=== PATIENT | male | born 1960 | race Caucasian/White ===

== ENCOUNTER 2018-10-13 09:56 | Emergency (ER) | payer BC, SELFPAY ==
[2018-10-13 09:57] VITALS: BP 169/101; PULSE 55; RESP 15; TEMP 36.6; O2SAT 94; BMI 35.3
--- NOTE | 2018-10-13 10:13 | CT_ITS ---
STUDY: CT ABDOMEN AND PELVIS WITHOUT CONTRAST REASON FOR EXAM: Male, 58 years old. Right flank pain. History of kidney stones. RADIATION DOSAGE (If Supplied By Facility): CTDIvol = ( 18.63 ) mGy, DLP = ( 986.92 ) mGycm TECHNIQUE: Transaxial images were obtained from the dome of the diaphragm to the symphysis pubis without oral contrast, and without intravenous contrast. Sagittal and coronal images were reconstructed. Individualized dose optimization techniques were used for this CT. COMPARISON: None. FINDINGS: Minimal degree of increased linear markings at the lung bases suggestive of the linear atelectasis and/or scarring. The visualized portions of the heart are within normal limits. There is decreased attenuation of the liver consistent with steatosis. Normal gallbladder and extrahepatic biliary system. Normal spleen. Normal pancreas. Normal bilateral adrenal glands. Mild degree of right hydronephrosis and right perinephric stranding. There is a 3 mm calculus in the posterior aspect of the midpole calyx of the right kidney. 2 tiny cysts are seen in the posterior aspect of the right kidney. There is a 2 mm calculus at the base of the bladder on the right side. This most likely secondary to a recently passed right ureteral calculus. Tiny nonobstructive left intrarenal calculi. There is a small hiatal hernia. Normal small intestine. Normal colon. The appendix is visualized and appears normal. Normal abdominal aorta. Normal inferior vena cava. There is borderline retroperitoneal lymphadenopathy with enlarged nodes no greater than 10mm in the short axis diameter. Normal urinary bladder. There is a small umbilical hernia containing fat. Small bilateral inguinal hernias containing fat slightly worse on the right side. Normal osseous structures. CT/Abdomen/Pelvis without Cont IMPRESSION: 2 mm calculus at the base of the bladder on the right side most likely secondary to a recently passed right ureteral calculus. Mild right hydronephrosis. Small bilateral nonobstructive intrarenal calculi and small bilateral renal cysts. Electronically Signed: Juan Antonio Thurston MD at 10:54 EST Tel [phone], Service support ,
--- NOTE | 2018-10-13 10:14 | ED.DCSUM_ITS ---
- ER Visit Summary Date of Service: 10/13/18 Chief Complaint: [] Right flank pain History of Present Illness: The patient is a 58 M A of right flank pain that started 3 hours ago sudden onset continuous sharp pain. Associated some dry heaves. He was given morphine and Zofran by the paramedics with good relief. He does have a history of 5-6 kidney stones in the past. Most he passed on his own. In 2010 he had to have a lithotripsy Physical Examination: Vital signs reviewed General: Well-nourished well-developed Head: Normocephalic atraumatic Eyes: Pupils equal round and reactive to light extraocular movements intact ENT: TMs clear no hemotympanum no trauma Neck: Nontender full range of motion Cardiovascular: Regular rate rhythm no murmurs normal S1-S2 Respiratory: No distress clear to auscultation bilaterally chest nontender Abdomen: Soft nontender nondistended normal bowel sounds no masses Back: Nontender no CVA tenderness Extremities: Nontender active range of motion ?4 extremities no trauma Skin: Normal color no trauma Neuro alert oriented cranial nerves II through XII intact normal strength sensation reflexes Test Results: [] Emergency Department Course and Treatment: [] Given IV fluids. Lab work and CT obtained his CT shows a 2 mm stone in the right side with mild right hydronephrosis. It is on the right side of the bladder. It looks like a recently passed stone. He has small bilateral intrarenal stones as well and bilateral renal cyst. CBC normal. Chemistries normal except calcium slightly low at 7.9. Patient did require 1 dose of morphine for pain. Feels better after this. Will be discharged with pain medication and nausea medicine. He is unsure if another stone has come down on the right side as his pain came back during his visit. This is conceivable however they are small. He will be given Flomax for home. Will follow up with urology. Treatment Plan: [] Disposition: [] Impression: [] Right-sided kidney stone with hydronephrosis This note was generated with [employer] dictation software. It may contain incorrect words, spelling, and punctuation that were not noted in review of the chart prior to signing ED Disposition - Plan for ED Patient: Chief Complaint: Flank Pain
[2018-10-13] MEDS: 0.9% Normal Saline 1,000 ML 250 ML IV (10:21)
[2018-10-13 10:36] LABS: Absolute Lymphocyte Count 1.04 X10^3/ul (0.83-4.51); Absolute Neutrophil Count 3.8 X10^3/uL (2.0-7.7); Basophil# 0.04 X10^3/uL; Basophil% 0.8 % (0-1); Eosinophil# 0.15 X10^3/uL; Eosinophils% 2.8 % (0-5); Hematocrit 40.3 % (40-54); Lymphocyte # 1.04 X10^3/ul (4.0); Lymphocyte % 19.6 % (19-41); Mean Corp Hgb Conc 32.3 g/gl (32-36); Mean Corpuscular Hgb 28.5 pg (27.0-32.0); Mean Corpuscular Volume 88.4 fL (80-94); Mean Platelet Vol. 10.3 fl (6.2-12.0); Monocyte# 0.29 X10^3/uL; Monocyte% 5.5 % (0-10); Neutrophil # 3.77 X10^3/uL (2.7-7.7); Neutrophil % 71.1 % (47-70); Platelet Count 173 K/mm3 (150-450); RBC Distribution Width CV 14.4 % (11.6-14.6); RBC Distribution Width SD 46.5 fl (35.1-43.9); Red Blood Count 4.56 M/mm3 (4.6-6.2); White Blood Count 5.3 K/mm3 (4.4-11.0)
[2018-10-13 10:38] LABS: POSITIVE COUNT NO; POSITIVE DIFFERENTIAL NO
[2018-10-13 10:42] LABS: Anion Gap 11 (5-15); BUN 18 mg/dL (7-18); BUN/Creat Ratio 15.4 RATIO (10-20); Calcium,Total 7.9 mg/dL (8.5-10.1); Chloride 106 mmol/L (98-107); Creatinine, Serum 1.17 mg/dL (0.70-1.30); EST Glomerular Filtration Rate 68 mL/min (>60); Est Glom Filt Rate - Afr Amer 82 mL/min (>60); Estimated Creatinine Clearance 73.69 ml/min; Glucose 149 mg/dL (74-106); Sodium Level 140 mmol/L (136-145)
--- NOTE | 2018-10-13 11:10 | ED.DEP ---
ED Disposition - Plan for ED Patient: Disposition: Home or Assisted Living Chief Complaint: Flank Pain Instructions: ED Stone Renal W Colic Prescriptions: Oxycodone HCl/Acetaminophen [Percocet 5/325] 1 - 2 tab PO Q6H PRN PRN 3 Days #12 tab PRN Reason: Pain Ondansetron [Zofran Odt] 4 mg PO Q8H PRN PRN #10 tab PRN Reason: Nausea Tamsulosin HCl [Flomax] 0.4 mg PO DAILY #7 cap Referrals: Maggie Esteban NP-C [Primary Care Provider] - Steve Barraza MD [STAFF PHYSICIAN] -
[2018-10-13] MEDS: Morphine 4 MG/ML Syringe IV (11:15)
[2018-10-13 12:04] VITALS: BP 138/89; RESP 16; O2SAT 97
== END 2018-10-13 12:05 | disposition home or self-care (01) ==
PROVIDERS: Emergency Provider Emergency Medicine; Family Provider Nurse Practitioner; PCP Nurse Practitioner
DX: N13.2 Hydronephrosis with renal and ureteral calculous obstruction (principal); N28.1 Cyst of kidney, acquired; Z87.442 Personal history of urinary calculi
CPT/HCPCS: 74176; 80048; 85025; 96361; 96374; 99284; A4216; J2405

== ENCOUNTER 2019-03-28 14:44 | Emergency (ER) | payer BC, SELFPAY ==
[2019-03-28 14:44] VITALS: BP 165/100; PULSE 100; RESP 16; TEMP 36.3; O2SAT 94; BMI 29.0
--- NOTE | 2019-03-28 15:28 | RAD_ITS ---
STUDY: X-RAY - ABDOMEN/PELVIS REASON FOR EXAM: Male, 58 years old. Abdominal pain and constipation. No bowel movement for 5 days. TECHNIQUE: Two AP supine views of the abdomen and pelvis. COMPARISON: CT of the abdomen and pelvis without contrast, October 13, 2016. FINDINGS: Normal visualized lung bases. There is feces seen in the nondistended ascending and transverse colon. There is no bowel distention or small bowel dilatation. There is no demonstrated free abdominal air. The visualized liver, spleen and kidneys are grossly normal in size and morphology. Normal soft tissue structures. Normal visualized osseous structures. RAD/Abdomen Single View IMPRESSION: Minimal feces seen in the transverse colon. There is no obvious obstruction or acute intra-abdominal process. Electronically Signed: Tin Wan DO at 16:05 EDT Tel [phone], Service support ,
--- NOTE | 2019-03-28 15:28 | ED.DCSUM_ITS ---
- ER Visit Summary Date of Service: 03/28/19 Chief Complaint: Constipation History of Present Illness: The patient is a 58 M presenting with constipation. Patient states he has been constipated since Tuesday. He states on Tuesday he took an OxyContin that he has for kidney stones. He states he only took one. He has not had this problem in the past with pain medication. He states he tried stool softeners, laxative, suppository at home. He was able to have a small hard stool this morning. He complains of nausea with no vomiting. He has had abdominal cramping. Denies other complaints. Physical Examination: Vitals are stable. Patient is afebrile. Alert no acute distress. HEENT exam is unremarkable. Neck is supple. Lungs are clear and equal bilaterally. Heart is regular rate and rhythm. Abdomen is soft nontender nondistended. No guarding or rebound Rectal: no stool, normal tone Extremities are unremarkable. Skin is warm and dry. Remainder of exam is unremarkable. Emergency Department Course and Treatment: Abdominal x-ray shows minimal feces seen in the transverse colon. There is no obvious obstruction or acute intra-abdominal process. Patient declined enema in the ED. He is given mag citrate for home. Advised to follow-up with his primary care physician. Advised return to ED if worsening complaints. Disposition: Discharge home Impression: Constipation This note was generated with [employer] dictation software. It may contain incorrect words, spelling, and punctuation that were not noted in review of the chart prior to signing ED Disposition - Plan for ED Patient: Instructions: ED Constipation Referrals: Maggie Esteban NP-C [Primary Care Provider] -
--- NOTE | 2019-03-28 16:18 | DCINST.ED_ITS ---
ED Disposition - Plan for ED Patient: Instructions: ED Constipation Referrals: Maggie Esteban, EVENING OR NIGHT NURSE SUPERVISOR-C [Primary Care Provider] -
--- NOTE | 2019-03-28 16:18 | ED.DEP ---
ED Disposition - Plan for ED Patient: Instructions: ED Constipation Referrals: Maggie Esteban, AGRICULTURAL REAL ESTATE AGENT-C [Primary Care Provider] -
[2019-03-28 16:38] VITALS: BP 136/98; PULSE 76; RESP 15; O2SAT 98
[2019-03-28] MEDS: Magnesium Citrate 300 ML PO (16:38)
== END 2019-03-28 16:39 | disposition home or self-care (01) ==
PROVIDERS: Emergency Provider Emergency Medicine; Family Provider Nurse Practitioner; PCP Nurse Practitioner
DX: K59.00 Constipation, unspecified (principal); R11.0 Nausea; Z87.442 Personal history of urinary calculi
CPT/HCPCS: 74018; 99283

== ENCOUNTER → 2019-04-13 | Outpatient (CLI) | payer BC, SELFPAY ==
[2019-04-13 18:19] VITALS: BMI 33.5
[2019-04-14 00:30] LABS: Absolute Lymphocyte Count 1.08 X10^3/ul (0.83-4.51); Absolute Neutrophil Count 7.1 X10^3/uL (2.0-7.7); Basophil# 0.02 X10^3/uL; Basophil% 0.2 % (0-1); Eosinophil# 0.16 X10^3/uL; Eosinophils% 1.8 % (0-5); Hematocrit 41.7 % (40-54); Hemoglobin 13.8 g/dl (13.0-16.5); Lymphocyte # 1.08 X10^3/ul (4.0); Lymphocyte % 11.9 % (19-41); Mean Corp Hgb Conc 33.1 g/gl (32-36); Mean Corpuscular Hgb 27.3 pg (27.0-32.0); Mean Corpuscular Volume 82.4 fL (80-94); Mean Platelet Vol. 10.3 fl (6.2-12.0); Monocyte# 0.68 X10^3/uL; Monocyte% 7.5 % (0-10); Neutrophil # 7.12 X10^3/uL (2.7-7.7); Neutrophil % 78.5 % (47-70); Platelet Count 276 K/mm3 (150-450); RBC Distribution Width CV 14.9 % (11.6-14.6); RBC Distribution Width SD 44.5 fl (35.1-43.9); Red Blood Count 5.06 M/mm3 (4.6-6.2); White Blood Count 9.1 K/mm3 (4.4-11.0)
[2019-04-14 00:35] LABS: POSITIVE COUNT NO; POSITIVE DIFFERENTIAL NO; POSITIVE MORPHOLOGY NO
[2019-04-14 00:43] LABS: ALB/GLOB Ratio 1.1 RATIO (0.9-2.4); AST(SGOT) 17 U/L (15-37); Alanine Aminotransfer ALT/SGPT 25 U/L (16-61); Albumin, Serum 4.2 g/dL (3.2-5.0); Alkaline Phosphatase 78 U/L (45-117); Amylase 41 U/L (25-115); Anion Gap 7 (5-15); BUN 26 mg/dL (7-18); BUN/Creat Ratio 14.9 RATIO (10-20); Chloride 102 mmol/L (98-107); Creatinine, Serum 1.74 mg/dL (0.70-1.30); EST Glomerular Filtration Rate 43 mL/min (>60); Est Glom Filt Rate - Afr Amer 52 mL/min (>60); Globulin 3.9 g/dL (2.2-4.2); Glucose 107 mg/dL (74-106); Lipase 189 U/L (73-393); Potassium 4.4 mmol/L (3.5-5.1); Protein, Total 8.1 g/dL (6.4-8.2); Sodium Level 136 mmol/L (136-145)
== END | disposition home or self-care (01) ==
LOC: LABSPEC 04-14 00:11
PROVIDERS: Family Provider Nurse Practitioner; PCP Nurse Practitioner; Visit Provider Nurse Practitioner
DX: K59.00 Constipation, unspecified (principal); N20.0 Calculus of kidney; R10.32 Left lower quadrant pain
CPT/HCPCS: 80053; 82150; 83690; 85025

== ENCOUNTER → 2019-04-14 | Outpatient (CLI) | payer BC, SELFPAY ==
[2019-04-13 18:19] VITALS: BMI 33.5
== END | disposition home or self-care (01) ==
LOC: LABSPEC 09:57
PROVIDERS: Family Provider Nurse Practitioner; PCP Nurse Practitioner; Referring Provider Nurse Practitioner; Visit Provider Nurse Practitioner
DX: R10.32 Left lower quadrant pain (principal); N20.0 Calculus of kidney; K59.00 Constipation, unspecified

== ENCOUNTER 2019-07-12 12:13 | Emergency (ER) | payer OTHER, BC, SELFPAY ==
[2019-04-13 18:19] VITALS: BMI 33.5
[2019-07-12 12:15] VITALS: BP 142/94; PULSE 82; RESP 16; TEMP 36; O2SAT 94; BMI 33.2
--- NOTE | 2019-07-12 12:29 | RAD_ITS ---
STUDY: X-RAY - LEFT HAND REASON FOR EXAM: Male, 59 years old. Pain of the left wrist, heavy object fall on wrist. TECHNIQUE: 3 view(s) of the hand. COMPARISON: None. FINDINGS: Osseous structures are intact, normally articulated, normally mineralized, no significant DJD. Osseous structures wrist are intact, no evidence of acute injury, mild DJD at the base of the thumb carpometacarpal articulation. Unremarkable soft tissues. RAD/Hand Min 3 Views IMPRESSION: No radiographic evidence of acute hand or wrist injury. Minimal DJD. Electronically Signed: Reyes Nogueira MD at 13:46 EDT Tel , Service support ,
--- NOTE | 2019-07-12 12:30 | ED.DCSUM_ITS ---
- ER Visit Summary Date of Service: 07/12/19 Chief Complaint: Left hand injury History of Present Illness: The patient is a 59 M who presents with left hand injury that occurred today. Patient states he was at work when a 20 pound lid fell onto his left hand. Patient states pain is worse with certain movements. Patient states the pain is across the metacarpal areas. Patient admits to some tingling in his fingers. Patient denies any radiation of the pain. Patient denies any other injuries. Physical Examination: Vital signs are stable. Patient is afebrile. Patient is in no acute distress. Musculoskeletal exam reveals tenderness over the second, third, and fourth metacarpals of the left hand. There is some mild edema. There is no ecchymosis. There is no deformity. There is no bony crepitance or step-off. Range of motion was limited in all motions of the left hand secondary to pain. Radial pulses are equal bilaterally. Capillary refill is less than 2 seconds in all digits. Sensation was intact to light touch in all digits. Test Results: X-rays of the left hand were obtained. There is no acute fracture. These were interpreted by the radiologist myself. Emergency Department Course and Treatment: Patient was given ice pack. Patient was instructed to ice and elevate the left hand. Patient was instructed to take Tylenol or ibuprofen as needed for pain. Patient was instructed to follow-up with his primary care physician or on license of [facility] in 5 to 7 days. Patient understood and was agreeable with the plan. All questions were answered. Disposition: Discharge home Impression: Left hand contusion This note was generated with [employer] dictation software. It may contain incorrect words, spelling, and punctuation that were not noted in review of the chart prior to signing ED Disposition - Plan for ED Patient: Disposition: Home or Assisted Living Diagnosis: Contusion of left hand, initial encounter Instructions: CONTUSION, Upper Extremity Referrals: Maggie Esteban NP-C [Primary Care Provider] - 5-7 Days [facility] [GROUP OF PHYSICIANS] -
== END 2019-07-12 15:00 | disposition home or self-care (01) ==
PROVIDERS: Emergency Provider Emergency Medicine; Family Provider Nurse Practitioner; PCP Nurse Practitioner
DX: S60.222A Contusion of left hand, initial encounter (principal); R20.2 Paresthesia of skin; W22.8XXA Striking against or struck by other objects, initial encounter; Y93.9 Activity, unspecified; Y92.9 Unspecified place or not applicable; Z72.0 Tobacco use
CPT/HCPCS: 73130; 99282

== ENCOUNTER 2023-03-15 07:06 | Emergency (ER) | payer OTHER, BC, SELFPAY ==
[2023-03-15 07:08] VITALS: BP 170/108; PULSE 72; RESP 18; TEMP 36.6; O2SAT 98; BMI 32.3
--- NOTE | 2023-03-15 07:16 | ED.VIS.LOWEX ---
HPI History of Present Illness Chief Complaint: Lower Extremity Injury Detail of Chief Complaint: Left ankle injury Informant: patient Narrative Narrative: Patient presents to the emergency department with complaint of injury to his left ankle. Patient states that he stepped outside his home and walked down a ramp to go to work and slipped and twisted his ankle. Patient did fall with his leg trapped under him. He was unable to bear weight afterwards. Presents a Workmen's Comp. injury. Patient states that as soon as he steps out of his home he is at work. Patient denies any other injuries. PFSH PFS Medical History (Updated 03/15/23 @ 07:[address] Christina Shi, DO) Kidney stone Vestibular neuritis Home Medications multivitamin 1 ea PO DAILY 10/13/18 [History Last Taken 03/28/19] ondansetron 4 mg disintegrating tablet 4 mg PO Q8H PRN PRN Nausea #10 tabs 03/15/23 [Rx Last Taken Unknown] oxycodone-acetaminophen 5 mg-325 mg tablet 1 tab PO Q6H PRN PRN pain 3 days #12 TABLETS 03/15/23 [Rx Last Taken Unknown] Allergy/AdvReac Type Severity Reaction Status Date / Time No Known Allergies Allergy Verified 03/15/23 07:07 Family History Other CVA (cerebral vascular accident) Diabetes Hypertension Kidney stones Non Hodgkin's lymphoma Surgical History H/O lithotripsy Social History (Updated 08/29/20 @ 07:56 by Sea PAYNE, KERRY) Smoking Status: Never smoker second hand exposure: No ROS ROS ED Review of Systems ROS Unobtainable: other Constitutional Constitutional ED: Reports lethargy; Denies chills, fever(s), sweats or weight loss Eyes Eyes: Denies blurry vision, change in vision or diplopia ENT ENT ED: Denies rhinorrhea or sore throat Cardiovascular Cardiovascular: Denies chest pain, orthopnea or racing heartbeat Respiratory/Chest Respiratory/Chest: Denies cough, dyspnea, dyspnea on exertion, orthopnea or sputum Gastrointestinal Gastrointestinal: Denies abdominal pain, diarrhea, nausea or vomiting Genitourinary Genitourinary ED: Denies dysuria, hematuria or urinary frequency Musculoskeletal Musculoskeletal: Reports other Details: Left ankle pain/injury ; Denies arthralgias, back pain, myalgias or neck pain Integumentary Denies abscess, Abrasions or rash Neurologic Neurologic: Denies headache(s) or weakness Psychiatric Psychiatric: Denies anxiety, depression or suicidal thoughts Endocrine Endocrinology: Denies polydipsia, polyphagia or polyuria Hematologic/Lymphatic Hematologic/Lymphatic: Denies easy bleeding, easy bruising or lymphadenopathy Allergic/Immunologic Allergic/Immunologic ED: Denies mouth swelling, tongue swelling or urticaria EXAM Physical Exam Const Vital Signs: 03/15/23 07:08 Temperature 97.8 F Temperature Source Oral Pulse Rate 72 Respiratory Rate 18 Blood Pressure 170/108 H Blood Pressure Mean 128 Pulse Ox 98 Oxygen Delivery Method Room Air Positive well nourished and well developed General Appearance ED: well developed and NAD HEENT Reports TM's clear and moist mucous membranes normocephalic and atraumatic; Negative for trauma or tenderness Tympanic Membrane ED: Yes TM's clear Eyes PERRL and EOMs intact bilaterally General Eye ED: Negative for pale conjunctiva or scleral icterus Neck no lymphadenopathy, supple and no JVD General: Negative for tenderness Chest Wall inspection of chest normal and palpation of chest normal Chest: Negative for tenderness Resp normal respiratory effort and clear to auscultation bilaterally Effort and Inspection: Negative for respiratory distress or pain with movement Auscultation: Negative for rhonchi, wheezes or diminished lung sounds Cardio regular rate, regular rhythm, S1 normal heart sound, S2 normal heart sound and no murmurs Peripheral Pulses: pulses 2+ throughout GI normal to inspection, nondistended, normoactive bowel sounds, soft to palpation, non-tender, non-distended and no masses Back/Spine no CVA tenderness and no thoracic nor lumbar tenderness Extremity Extremity Narrative: Patient has soft tissue swelling and tenderness palpation over the left lateral malleolus. No pain at the proximal fibular head. No pain at the base of the fifth metatarsal. He is neurovascular intact distally. No broken skin noted. General Extremety ED: Negative for edema General Extremity: Negative for edema Neuro oriented x3, CN's II-XII intact bilaterally, no sensory deficits noted and gait normal Sensorium / Orientation: awake, alert, oriented to person, oriented to place and oriented to time Motor Exam: strength 5/5 throughout and strength abnormal Psych mental status grossly normal Skin no rashes or lesions noted and no wounds MDM MDM MDM Narrative Medical decision making narrative: Case discussed with foot and ankle specialist on-call Dr. Wills who recommended posterior splint as well as crutches and pain medication and he can see him in the office this week. Patient will be given work restrictions as this is Workmen's Comp. injury. Patient instructed to ice and elevate the extremity. Given a prescription for oxycodone for pain. Radiography Diagnostic Testing: Clinical Impression(s) from Imaging Studies Ankle X-Ray 03/15/23 07:22 IMPRESSION: Acute bimalleolar fracture with mild lateral displacement deformity. Electronically Signed: Renny Grant MD at 8:07 EDT , Three-view x-rays of the ankle obtained interpreted by myself as Liao B fracture through the distal fibula with minimal displacement. There also appears to be small avulsion off the medial malleolus that I suspect is likely old. Official report from radiology pending. Discharge Plan Triage Chief Complaint: Lower Extremity Injury ED Provider: Christina Shi Dx/Rx/DC Orders Clinical Impression: Left fibular fracture Instructions: ED Ankle Fracture, Distal Fibula Prescriptions: New oxycodone-acetaminophen [oxycodone-acetaminophen] 5-325 mg tablet 1 tab PO Q6H PRN PRN (Reason: pain) 3 Days Qty: 12 0RF ondansetron [ondansetron] 4 mg tablet,disintegrating 4 mg PO Q8H PRN PRN (Reason: Nausea) Qty: 10 0RF No Action multivitamin 1 EACH tablet 1 ea PO DAILY Primary Care Provider: Maggie Esteban NP Referrals: Jose Ramon Wills DPM [Med Staff - Active Staff] - 3-5 Days Maggie Esteban NP, LIGHTING DIRECTOR-C [Primary Care Provider] - Disposition Disposition: Home, Self Care
--- NOTE | 2023-03-15 07:22 | RAD_ITS ---
EXAM: XR LEFT ANKLE COMPLETE, 3 OR MORE VIEWS CLINICAL INDICATION: injury TECHNIQUE: Frontal, lateral and oblique views of the left ankle. This report was created using [employer] report generation technology. COMPARISON: None. FINDINGS: BONES/JOINTS: And oblique mildly displaced fracture of the lateral malleolus noted. There is also small avulsion-type fracture involving the medial malleolus. Approximately 3 mm of lateral displacement of the fracture fragments along with the talus. Dorsal and plantar calcaneal spurring is present. SOFT TISSUES: Normal. No soft tissue swelling or gas. No radiopaque foreign body. RAD/Ankle min 3 Views IMPRESSION: Acute bimalleolar fracture with mild lateral displacement deformity. Electronically Signed: Renny Grant MD at 8:07 EDT ,
== END 2023-03-15 08:39 | disposition home or self-care (01) ==
PROVIDERS: Emergency Provider Emergency Medicine; PCP Nurse Practitioner; Visit Provider Emergency Medicine
DX: S82.402A Unspecified fracture of shaft of left fibula, initial encounter for closed fracture (principal); Y92.69 Other specified industrial and construction area as the place of occurrence of the external cause; W01.198A Fall on same level from slipping, tripping and stumbling with subsequent striking against other object, initial encounter; Y99.0 Civilian activity done for income or pay
CPT/HCPCS: 29515; 73610; 99285

== ENCOUNTER → 2023-03-21 | Outpatient (CLI) | payer OTHER, BC, SELFPAY ==
[2023-03-21 10:13] LABS: Absolute Lymphocyte Count 1.05 X10^3/uL (0.83-4.51); Absolute Neutrophil Count 4.9 X10^3/uL (2.0-7.7); Basophil# 0.03 X10^3/uL; Basophil% 0.5 % (0-1); Eosinophil# 0.13 X10^3/uL; Hematocrit 44.7 % (40-54); Lymphocyte # 1.05 X10^3/ul (0.83-4.51); Lymphocyte % 16.4 % (19-41); Mean Corp Hgb Conc 31.3 g/dL (32-36); Mean Corpuscular Hgb 27.1 pg (27.0-32.0); Mean Corpuscular Volume 86.6 fL (80-94); Mean Platelet Vol. 9.8 fl (6.2-12.0); Monocyte# 0.31 X10^3/uL; Monocyte% 4.8 % (0-10); NRBC Flagged by Analyzer 0 % (0-5); Neutrophil # 4.87 X10^3/uL (2.7-7.7); Platelet Count 229 K/mm3 (150-450); RBC Distribution Width SD 47.8 fl (35.1-43.9); Red Blood Count 5.16 M/mm3 (4.6-6.2); White Blood Count 6.4 K/mm3 (4.4-11.0)
[2023-03-21 10:39] LABS: Anion Gap 6 (5-15); BUN 15 mg/dL (7-18); BUN/Creat Ratio 15.8 RATIO (10-20); Calcium,Total 9.4 mg/dL (8.5-10.1); Chloride 105 mmol/L (98-107); Creatinine, Serum 0.95 mg/dL (0.70-1.30); EST Glomerular Filtration Rate 84 mL/min (>60); Est Glom Filt Rate - Afr Amer 102 mL/min (>60); Glucose 104 mg/dL (74-106); Potassium 4.2 mmol/L (3.5-5.1); Sodium Level 136 mmol/L (136-145)
[2023-03-21 10:42] LABS: Hemoglobin A1c 5.6 % (3.8-5.6)
== END | disposition home or self-care (01) ==
PROVIDERS: PCP Nurse Practitioner; Referring Provider Student in an Organized Health Care Education/Training Program; Visit Provider Student in an Organized Health Care Education/Training Program
DX: Z01.818 Encounter for other preprocedural examination (principal); Z01.810 Encounter for preprocedural cardiovascular examination
CPT/HCPCS: 36415; 80048; 83036; 85025; 93005

== ENCOUNTER 2023-11-07 00:18 | Inpatient (IN) | payer BC, SELFPAY ==
[2023-11-07] VITALS (20 sets, daily range): BP systolic 140–174; BP diastolic 91–108; PULSE 59–88; RESP 11–20; TEMP 36–36.8; O2SAT 92–98; BMI 34.9; BMI 34.4
--- NOTE | 2023-11-07 00:29 | EKG12_ITS ---
Test Reason : CP Blood Pressure : / mmHG Vent. Rate : 070 BPM Atrial Rate : 070 BPM P-R Int : 182 ms QRS Dur : 098 ms QT Int : 404 ms P-R-T Axes : 050 -28 049 degrees QTc Int : 436 ms Normal sinus rhythm Nonspecific ST abnormality Abnormal ECG Cannot exclude anterior ischemia Confirmed by YOMAIRA ROMAN, GORGE ([id number]), visual effects editor KHARI LANE ([id number]) on 11/07/2023 1:12:55 PM Referred By: Joshua Palmer Confirmed By:GORGE BURNETTE MD
--- NOTE | 2023-11-07 00:29 | RAD_ITS ---
STUDY: X-RAY CHEST REASON FOR EXAM: Male, 63 years old. Chest pain TECHNIQUE: Single AP portable view of the chest. COMPARISON: None. FINDINGS: The lungs are clear and expanded. There is no demonstrated pleural abnormality. Normal size heart. Normal mediastinum and ava. Normal visualized pulmonary arteries. There is atherosclerotic tortuosity of the aortic arch and descending thoracic aorta. Normal visualized thoracic spine. Normal visualized ribs, clavicles, and shoulders. There is no demonstrated abnormality of the visualized soft tissue structures of the upper abdomen. RAD/Chest 1 View (Portable) IMPRESSION: No demonstrated acute cardiopulmonary process. Electronically Signed: Mari Ayala MD at 1:21 EST ,
[2023-11-07 00:43] LABS: Absolute Lymphocyte Count 1.08 X10^3/uL (0.83-4.51); Absolute Neutrophil Count 5.7 X10^3/uL (2.0-7.7); Basophil# 0.03 X10^3/uL; Basophil% 0.4 % (0-1); Eosinophils% 2.6 % (0-5); Hematocrit 41.9 % (40-54); Hemoglobin 13.7 g/dL (13.0-16.5); Lymphocyte # 1.08 X10^3/ul (0.83-4.51); Lymphocyte % 14.3 % (19-41); Mean Corp Hgb Conc 32.7 g/dL (32-36); Mean Corpuscular Volume 85.7 fL (80-94); Mean Platelet Vol. 10.6 fl (6.2-12.0); Monocyte# 0.52 X10^3/uL; Monocyte% 6.9 % (0-10); NRBC Flagged by Analyzer 0 % (0-5); Neutrophil # 5.68 X10^3/uL (2.7-7.7); Platelet Count 206 K/mm3 (150-450); RBC Distribution Width CV 14.1 % (11.6-14.6); RBC Distribution Width SD 44.3 fl (35.1-43.9); Red Blood Count 4.89 M/mm3 (4.6-6.2); White Blood Count 7.6 K/mm3 (4.4-11.0)
--- NOTE | 2023-11-07 00:44 | EDS_ITS ---
HPI History of Present Illness Chief Complaint: Chest Pain Informant: patient and EMS Narrative Narrative: Chest tightness that started around 6 or 7 hours ago after a that was very emotional for him. He took some Tums and eventually this went away but th en around 4-4.5 hours ago, the discomfort came back spontaneously and has not gone away. It feels burning, and like something inside is choking him. It is nonpleuritic substernal nonradiating. He had an episode of diaphoresis with this but no other associated symptoms such as dyspnea, arm discomfort, jaw discomfort, nausea or vomiting. No history of heart problems. Prior Similar Symptoms: No CVD Risk Factors: Negative for Hypertension, Diabetes, Hypercholesterolemia, Family History 1' </=55 or Smoking [facility] Medical History Former tobacco use HLD (hyperlipidemia) Kidney stone Obesity Vestibular neuritis Home Medications multivitamin 1 ea PO DAILY 10/13/18 [History Last Taken 03/28/19] Allergy/AdvReac Type Severity Reaction Status Date / Time No Known Allergies Allergy Verified 11/07/23 00:25 Family History Mother Hypertension Anemia Father Hypertension Non Hodgkin's lymphoma Brother Sarcoidosis Other CVA (cerebral vascular accident) Diabetes Kidney stones Surgical History H/O lithotripsy Social History household members: spouse Smoking Status: Former smoker how long ago did patient quit smoking: History of prior occasional cigar ussage. second hand exposure: No alcohol intake: current alcohol intake frequency: holidays/special occasions only substance use type: does not use ROS ROS ED Constitutional Constitutional ED: Reports sweats; Denies chills or fever(s) Eyes Eyes: Denies change in vision or diplopia ENT ENT ED: Denies rhinorrhea or sore throat Cardiovascular Cardiovascular: Reports chest pain; Denies palpitations Respiratory/Chest Respiratory/Chest: Denies cough or dyspnea Gastrointestinal Gastrointestinal: Denies abdominal pain, diarrhea, nausea or vomiting Genitourinary Genitourinary ED: Denies dysuria or hematuria Musculoskeletal Musculoskeletal: Denies back pain or neck pain Integumentary Denies abscess or rash Neurologic Neurologic: Denies headache(s), paresthesias or weakness Psychiatric Psychiatric: Denies anxiety or suicidal thoughts EXAM Physical Exam Const Vital Signs: 11/07/23 00:20 11/07/23 00:25 11/07/23 00:38 Temperature 96.8 F L Temperature Source Temporal Pulse Rate 71 Respiratory Rate 14 Respiratory Effort Normal Non-Labored Blood Pressure 174/108 H Blood Pressure Mean 130 Pulse Ox 95 Oxygen Delivery Method Room Air Room Air 11/07/23 00:48 11/07/23 01:18 11/07/23 02:00 Temperature Temperature Source Pulse Rate 76 70 68 Respiratory Rate 20 H 20 H Respiratory Effort Blood Pressure 171/103 H 148/98 H 161/92 H Blood Pressure Mean 114 115 Pulse Ox 92 93 Oxygen Delivery Method Room Air Room Air Positive well nourished and well developed General Appearance ED: well developed and NAD HEENT Reports moist mucous membranes normocephalic and atraumatic Eyes PERRL and EOMs intact bilaterally Neck full ROM and supple Resp normal respiratory effort and clear to auscultation bilaterally Cardio regular rate, regular rhythm and no murmurs GI non-tender and non-distended Auscultation: normoactive bowel sounds Palpation: soft Back/Spine no CVA tenderness General Back: other FROM Extremity normal to inspection General Extremety ED: Negative for edema, pulses abnormal or tenderness General Extremity: Negative for edema or pulses abnormal Neuro oriented x3, CN's II-XII intact bilaterally and no sensory deficits noted Sensorium / Orientation: awake and alert Motor Exam: strength 5/5 throughout Skin no rashes or lesions noted and no wounds Heart Score History: Highly Suspicious ECG: Significant ST-Depression Age: >/= 65 years Risk Factors: No Risk Factors Troponin: >1 - <3 Normal Limit Score: 7 MDM MDM MDM Narrative Medical decision making narrative: Patient feeling much better after another nitroglycerin pain is almost gone or gone. Nitroglycerin paste placed on his chest, his pressure is a little better, his initial troponin comes back a little elevated nonspecifically in context of normal renal function. This is highly suspicious for acute coronary syndrome/unstable angina. I did repeat his EKG which is improved and also consistent with this as well. Lab Data Attestation: I reviewed the patient's lab results. Labs: Laboratory Results - last 24 hr 11/07/23 00:30 WBC 7.6 RBC 4.89 Hgb 13.7 Hct 41.9 MCV 85.7 MCH 28.0 MCHC 32.7 RDW Std Deviation 44.3 H RDW Coeff of Oscar 14.1 Plt Count 206 MPV 10.6 Immature Gran % (Auto) 0.800 Neut % (Auto) 75.0 H Lymph % (Auto) 14.3 L Hutchinson % (Auto) 6.9 Eos % (Auto) 2.6 Baso % (Auto) 0.4 Absolute Neuts (auto) 5.7 Absolute Lymphs (auto) 1.08 Nucleated RBC % 0 Sodium 136 Potassium 3.6 Chloride 105 Carbon Dioxide 25.0 Anion Gap 6 BUN 16 Creatinine 1.01 Estim Creat Clear Calc 80.03 Est GFR (MDRD) Af Amer 95 Est GFR (MDRD) Non-Af 79 BUN/Creatinine Ratio 15.8 Glucose 184 H Calcium 9.7 Troponin I High Sens 91 H Radiography Chest X-Ray - ED: 1 View, Read by ED Physician, Normal, Heart, Lungs, Mediastinum and No Acute Disease Diagnostic Testing: Clinical Impression(s) from Imaging Studies Chest X-Ray 11/07/23 00:29 IMPRESSION: No demonstrated acute cardiopulmonary process. Electronically Signed: Mari Ayala MD at 1:21 EST Reading Location ID and State: [facility] / [place] Tel , Service support , Rhythm Strip Rhythm Strip: Sinus Rhythm Rate: 70 Ectopy: None EKG Initial EKG: Attestation: I personally reviewed and interpreted this EKG as follows: Interpretation: Sinus Rhythm, No Acute Injury Pattern, S-T Elevation (V1 1mm) and S-T Depression (1mm I, aVL) Prior EKG tracings: available for review Prior: Changed Follow-up EKG: Attestation: I personally reviewed and interpreted this EKG as follows: Interpretation: Sinus Rhythm, No Acute Injury Pattern and S-T Elevation (Persistent in V1) Comments: ST depressions in 1 and aVL resolved Discharge Plan Dx/Rx/DC Orders Clinical Impression: ACS (acute coronary syndrome) Disposition Disposition: Acute Care Hospital [facility]
[2023-11-07] MEDS: Nitroglycerin SL (ED/IMG/CATH) 0.4 MG TABLET SL (00:48)
[2023-11-07 01:06] LABS: Anion Gap 6 (5-15); BUN 16 mg/dL (7-18); BUN/Creat Ratio 15.8 RATIO (10-20); Calcium,Total 9.7 mg/dL (8.5-10.1); Chloride 105 mmol/L (98-107); Creatinine, Serum 1.01 mg/dL (0.70-1.30); EST Glomerular Filtration Rate 79 mL/min (>60); Est Glom Filt Rate - Afr Amer 95 mL/min (>60); Estimated Creatinine Clearance 80.03 ml/min; Glucose 184 mg/dL (74-106); Potassium 3.6 mmol/L (3.5-5.1); Sodium Level 136 mmol/L (136-145); Troponin-I HS (w/2H Reflex) 91 pg/mL (3.0-78.0)
[2023-11-07] MEDS: Acetaminophen 500 MG Tablet 1000 MG PO (02:29)
[2023-11-07 02:40] LABS: Reflex Troponin-HS? (from REC) Y
--- NOTE | 2023-11-07 02:41 | EKG12_ITS ---
Test Reason : RHYTHM CHANGE Blood Pressure : / mmHG Vent. Rate : 070 BPM Atrial Rate : 070 BPM P-R Int : 178 ms QRS Dur : 088 ms QT Int : 390 ms P-R-T Axes : 039 -28 027 degrees QTc Int : 421 ms Normal sinus rhythm with sinus arrhythmia Normal ECG Anterior ischemia Confirmed by YOMAIRA ROMAN, GORGE ([id number]), editor continuity and script KHARI LANE ([id number]) on 11/07/2023 1:13:12 PM Referred By: Joshua Palmer Confirmed By:GORGE BURNETTE MD
--- NOTE | 2023-11-07 02:43 | PCM.HP.STD ---
HPI - General General Date of Admission: 11/07/23 Date of Service: 11/07/23 Chief Complaint: Chest pain HPI Narrative The patient is a 63 y/o M w/ PMHx: Obesity, HLD, Hx Vestibular neuritis, Hx Nephrolithiasis, Cigar tobacco use who presents to the [facility] [place] ED on 11/07/23 with history of onset of chest discomfort starting approximately 7 hours prior to ED presentation specifically at a with significantly increased emotional responses as of recently with self administration of Tums with improvement however returned again within the last 4 to 4.5 hours prior to ED arrival spontaneously and has not gone away since described as burning with none pleuritic substernal specific location, nonradiating with diaphoresis with no dyspnea, nausea or emesis associated and given ongoing prompted eventual ED evaluation. Patient pain free in the ED.Workup in the ED included T96.8, heart rate 71, BP 174/108, respiratory rate 14, 95% on room air, CBC with WBC 7.6, human 13.7, platelet 206 without marked shift, BMP with glucose 184, troponin 91 with repeat delta 293, chest x-ray with no acute cardiopulmonary findings, EKG sinus rhythm with ST elevation V1 [address] depression in 1-1 mm and aVL with repeat EKG with resolution of prior noted ST depression in 1-1 mm and aVL. In the ED patient administered nitroglycerin sublingual therapy, Tylenol 1000 mg p.o. x 1, subcu Lovenox 120 mg subcu x 1 and eventually nitroglycerin ointment 1 inch placed transdermally. [facility] Medical History (Updated 11/07/23 @ 03:[address] Marlys Hernadez MD) Cigar smoker HLD (hyperlipidemia) Kidney stone Obesity Vestibular neuritis Home Medications multivitamin 1 ea PO DAILY 10/13/18 [History Last Taken 11/06/23] ascorbic acid (vitamin C) 500 mg tablet (C-500) 500 mg PO DAILY 11/07/23 [History Last Taken 11/06/23] cholecalciferol (vitamin D3) 125 mcg (5,000 unit) capsule 125 mcg PO DAILY 11/07/23 [History Last Taken 11/06/23] coenzyme Q10 30 mg capsule (Co Q-10) 30 mg PO DAILY 11/07/23 [History Last Taken 11/06/23] Allergy/AdvReac Type Severity Reaction Status Date / Time No Known Allergies Allergy Verified 11/07/23 00:25 Family History Mother Hypertension Anemia Father Hypertension Non Hodgkin's lymphoma Brother Sarcoidosis Other CVA (cerebral vascular accident) Diabetes Kidney stones Surgical History (Updated 11/07/23 @ 03:[address] Marlys Hernadez MD) H/O lithotripsy History of ankle surgery Social History (Updated 11/07/23 @ 03:[address] Marlys Hernadez MD) household members: spouse Smoking Status: Current some day smoker tobacco type: cigars second hand exposure: No alcohol intake: current alcohol intake frequency: holidays/special occasions only substance use type: does not use ROS ROS Narrative Admission Review of Systems: CONSTITUTIONAL: No weight loss, fever, chills, + weakness or fatigue. HEENT: Eyes: No visual loss, blurred vision, double vision or yellow sclerae. Ears, Nose, Throat: No hearing loss, sneezing, congestion, runny nose or sore throat. SKIN: No rash or itching, lesions, wounds. CARDIOVASCULAR: + Chest pain. No palpitations, edema, orthopnea, syncopal events. RESPIRATORY: No shortness of breath, cough or sputum, wheezing, hemoptysis. GASTROINTESTINAL: No anorexia, nausea, vomiting or diarrhea, abdominal pain, melena, BRBPR. GENITOURINARY: No dysuria, frequency, urgency or retention. NEUROLOGICAL: No headache, dizziness, syncope, paralysis, ataxia, numbness or tingling in the extremities, focal weakness, change in bowel or bladder control, seizure. MUSCULOSKELETAL: No muscle, back pain, joint pain or stiffness. HEMATOLOGIC: No anemia, bleeding or bruising. LYMPHATICS: No enlarged nodes. No history of splenectomy. PSYCHIATRIC: + Recent notable motion response at when episode of chest discomfort started but no specific documented anxiety or depression. ENDOCRINOLOGIC: + reports of sweating. No cold or heat intolerance. No polyuria or polydipsia. ALLERGIES: No history of asthma, hives, eczema or rhinitis. Vital Signs Vital Signs Vital Signs: 11/07/23 00:20 11/07/23 00:25 11/07/23 00:38 Temperature 96.8 F L Temperature Source Temporal Pulse Rate 71 Respiratory Rate 14 Respiratory Effort Normal Non-Labored Blood Pressure 174/108 H Blood Pressure Mean 130 Pulse Ox 95 Oxygen Delivery Method Room Air Room Air 11/07/23 00:48 11/07/23 01:18 11/07/23 02:00 Temperature Temperature Source Pulse Rate 76 70 68 Respiratory Rate 20 H 20 H Respiratory Effort Blood Pressure 171/103 H 148/98 H 161/92 H Blood Pressure Mean 114 115 Pulse Ox 92 93 Oxygen Delivery Method Room Air Room Air Weight Weight: 257 lb 7.999 oz Body Mass Index (BMI) 34.9 Physical Exam Narrative Physical Examination: General: Awake, alert, oriented x 3 and cooperative, seated upright in the ED, notes chest pain current near resolved. Skin: Normal color, normal turgor, no icterus, no cyanosis. HEENT: AT/NC, EOMI, PERRLA, MMM, no carotid bruits or JVD noted; however, thickened neck makes evaluation difficult. Lungs: CTA bilaterally, moderate effort, mild decrease BL bases, no rales, ronchi or wheezing. Heart: Regular rate and rhythm; no gallop, rub audible. Abdomen: Soft, obese, NTTP, ND, normal BS, no appreciated HSM. Extremities: No cyanosis, clubbing, or edema. Neurological: Patient awake, alert, oriented as noted, cognitive function intact; pupils equally reactive to light and accommodation, cranial nerves II-XII grossly normal, moving all 4 extremities, no focal deficits, strength mildly to moderately globally decreased secondary to acute presentation complaints Psychiatric: Affect appears fatigued, no acute evidence of depressive or anxiety feelings. Results Lab / Micro Data 11/07/23 00:30 11/07/23 00:30 Labs: Laboratory Results - last 24 hr 11/07/23 00:30: WBC 7.6, RBC 4.89, Hgb 13.7, Hct 41.9, MCV 85.7, MCH 28.0, MCHC 32.7, RDW Std Deviation 44.3 H, RDW Coeff of Oscar 14.1, Plt Count 206, MPV 10.6, Immature Gran % (Auto) 0.800, Neut % (Auto) 75.0 H, Lymph % (Auto) 14.3 L, Mower % (Auto) 6.9, Eos % (Auto) 2.6, Baso % (Auto) 0.4, Absolute Neuts (auto) 5.7, Absolute Lymphs (auto) 1.08, Nucleated RBC % 0, Sodium 136, Potassium 3.6, Chloride 105, Carbon Dioxide 25.0, Anion Gap 6, BUN 16, Creatinine 1.01, Estim Creat Clear Calc 80.03, Est GFR (MDRD) Af Amer 95, Est GFR (MDRD) Non-Af 79, BUN/Creatinine Ratio 15.8, Glucose 184 H, Calcium 9.7, Troponin I High Sens 91 H Rhythm Strip Rhythm Strip: Sinus Rhythm Rate: 70 Ectopy: None Imagaing Radiology Impression Chest X-Ray 11/07/23 00:29 IMPRESSION: No demonstrated acute cardiopulmonary process. Electronically Signed: Mari Ayala MD at 1:21 EST , Assessment & Plan Assessment/Plan (1) NSTEMI, initial episode of care: PLAN: Plan The patient is a 63 y/o M w/ PMHx: Obesity, HLD, Hx Vestibular neuritis, Hx Nephrolithiasis, Cigar tobacco use who presents to the [facility] [place] ED on 11/07/23 with history of onset of chest discomfort starting approximately 7 hours prior to ED presentation specifically at a with significantly increased emotional responses as of recently with self administration of Tums with improvement however returned again within the last 4 to 4.5 hours prior to ED arrival spontaneously and has not gone away since described as burning with none pleuritic substernal specific location, nonradiating with diaphoresis with no dyspnea, nausea or emesis associated and given ongoing prompted eventual ED evaluation. #1. Chest pain/ACS with initially indeterminate cardiac enzyme which increased, now ruled in as NSTEMI type I: EKG in ED w/ sinus rhythm with ST elevation V1 [address] depression in 1-1 mm and aVL with repeat CXR with resolution of the depressions, CXR w/ no acute cardiopulmonary finding. Trop elevated, 91 w/ repeat delta 293. Will admit to PCU, maintain on a monitored bed, continue serial cardiac enzymes and EKGs. Obtain magnesium level upon admission. Given elevation will continue therapeutic Lovenox initiated in the ED however if troponin declines from now then can de-escalate to chemoprophylactic dosing only. Continue medical management w/ asa, obtain AM FLP. ECHO requested. Cardiology consulted, will maintain n.p.o. status with judicious hydration in case of cardiac catheterization. ASA, NG TD paste continued. #2. Elevated blood pressure without hypertensive diagnosis: Patient with significantly elevated BP upon presentation however he does present with discomfort, given #1 will add at low dose metoprolol at this time (given presentation HR in the 60s, may need further alteration), add additional oral regimen pending response/ECHO and evaluation further of #1, as needed IV hydralazine in the interim. #3. Hyperglycemia, no diabetic history: Admission glucose 184, will obtain hemoglobin A1c and if consistent with diabetes would plan to initiate on Accu-Cheks with insulin sliding scale and ADA diet once appropriate. #4. Hyperlipidemia: Noted and remote history however patient is not on statin therapy, given presentation add high dose, FLP in AM. #5. Tobacco Abuse: Encouraged cessation, inpatient consultation per RT, NR if desired. #6. Obesity: Weight loss and lifestyle changes encouraged. #6. Possible LIZZY: Per discussion with patient and patient's spouse he does snore and also does gasp for air in his sleep, will request trending pulse ox while he is here. #7. DVT prophylaxis: We will continue therapeutic Lovenox initiated in the ED pending enzyme trending and as noted if troponin decreases then certainly could transition to chemoprophylactic dosing only. #8. CODE status: Patient does not have healthcare Pap business attorney or living will set up but his who is present he notes would be his decision-maker. Discussed CODE status at length including difference between FULL code, DNR-CCA and DNR-CC status. Following discussions about the differences in these status, requested Full Code status. Charges/Coding Visit Charges Inpatient E&M: 04209 Init Hosp L3
[2023-11-07] MEDS: Enoxaparin 120 MG/0.8 ML Syringe SC ×2 (02:57→20:02)
[2023-11-07] MEDS: Nitroglycerin Oint 1 INCH PACKET TD ×2 (02:57→06:07)
[2023-11-07 03:04] LABS: Troponin-I HS 293 pg/mL (3.0-78.0)
[2023-11-07 03:20] LABS: Magnesium 1.9 mg/dL (1.6-2.6)
--- NOTE | 2023-11-07 03:35 | ECHOCS_ITS ---
Reason For Study: CAD/ASHD Procedure This was a 2D Doppler, Color Flow transthoracic echocardiogram. The study was technically difficult. Due to body habitus. Contrast injection was performed. Exam performed portable in ICU/CCU. Left Ventricle Normal LV size. The estimated ejection fraction is 45-50 %. Stage 1 diastolic dysfunction. There are regional wall motion abnormalities as specified. [place] is akinetic. Right Ventricle Normal RV size. Normal systolic function. Atria The left and right atria are normal. Mitral Valve The mitral valve is structurally normal. No prolapse or stenosis seen. Trivial mitral valve insufficiency. Tricuspid Valve Normal tricuspid valve. Trivial tricuspid valve insufficiency. Right ventricular systolic pressure estimated to be 23 mmHg. Aortic Valve The aortic valve is not well visualized in the short axis view. Pulmonic Valve Normal pulmonic valve. Great Vessels Normal aortic root. Pericardium/Pleural No pericardial effusion. Medication Diluted definity 3.5ml given slow IV push to enhance endocardial definition. MMode/2D Measurements & Calculations LVIDd: 3.9 cm IVSd: 1.5 cm Ao root diam: 3.5 cm LVIDs: 2.9 cm LVPWd: 1.5 cm RVDd: 3.7 cm FS: 25.2 % LAV(MOD-bp): 46.2 ml LVAd ap4: 35.9 cm2 LVAd ap2: 32.9 cm2 LAV(MOD-bp) Indexed: 19.6 ml/m2 LVLd ap4: 8.4 cm LVLd ap2: 8.3 cm LAV(MOD-sp2): 54.9 ml EDV(MOD-sp4): 124.8 ml EDV(MOD-sp2): 103.7 ml LAV(MOD-sp4): 36.5 ml EDV(sp4-el): 130.3 ml EDV(sp2-el): 110.5 ml LVAs ap4: 26.1 cm2 LVAs ap2: 23.9 cm2 LVLs ap4: 8.4 cm LVLs ap2: 8.3 cm ESV(MOD-sp4): 65.6 ml ESV(MOD-sp2): 55.8 ml ESV(sp4-el): 69.2 ml ESV(sp2-el): 58.4 ml EF(MOD-sp4): 47.4 % EF(MOD-sp2): 46.1 % EF(sp4-el): 46.9 % SV(MOD-sp4): 59.2 ml SV(MOD-sp2): 47.8 ml SV(sp4-el): 61.1 ml LA A4 area: 14.7 cm2 LA dimension(2D): 3.4 cm RA A4 area: 14.6 cm2 TAPSE: 2.1 cm Time Measurements MV dec time: 0.25 sec Doppler Measurements & Calculations MV E max jay: 57.5 cm/sec Lat Peak E' Jay: 7.3 cm/sec Med Peak E' Jay: 8.0 cm/sec MV A max jay: 67.9 cm/sec E/E' lat: 7.9 E/E' med: 7.2 MV E/A: 0.85 MV V2 max: 103.3 cm/sec MV P1/2t max jay: 71.4 cm/sec Ao V2 max: 118.6 cm/sec MV max P.3 mmHg MV P1/2t: 84.8 msec Ao max P.6 mmHg MV V2 mean: 54.2 cm/sec Ao V2 mean: 94.1 cm/sec MV mean P.4 mmHg MV dec slope: 246.6 cm/sec2 Ao mean P.7 mmHg MV V2 VTI: 22.9 cm MVA(P1/2t): 2.6 cm2 Ao V2 VTI: 27.0 cm AV (velocity ratio): 0.86 LV V1 max: 96.0 cm/sec PA V2 max: 92.1 cm/sec TR max jay: 220.6 cm/sec LV V1 max P.7 mmHg PA V2 mean: 63.2 cm/sec TR max P.5 mmHg LV V1 mean P.2 mmHg LV V1 mean: 71.3 cm/sec LV V1 VTI: 23.3 cm ECHO/Echo Complete W/ Contrast Interpretation Summary Stage 1 diastolic dysfunction. There are regional wall motion abnormalities as specified. [place] is akinetic. The estimated ejection fraction is 45-50 %. The study was technically difficult. Contrast injection was performed. Ordering Physician: Marlys Hernadez Referring Physician: Maggie Esteban Performed By: Trina Curtis, ALYSSA, RVT
[2023-11-07] MEDS: 0.9% Normal Saline (1000mL) 1,000 ML 100 ML IV (03:53)
[2023-11-07] MEDS: Famotidine 20 MG Tablet PO ×3 (03:56→20:02)
[2023-11-07 04:54] LABS: Absolute Lymphocyte Count 0.83 X10^3/uL (0.83-4.51); Absolute Neutrophil Count 6.6 X10^3/uL (2.0-7.7); Basophil# 0.04 X10^3/uL; Basophil% 0.5 % (0-1); Eosinophil# 0.07 X10^3/uL; Eosinophils% 0.9 % (0-5); Hematocrit 41.3 % (40-54); Hemoglobin 13.4 g/dL (13.0-16.5); Lymphocyte # 0.83 X10^3/ul (0.83-4.51); Lymphocyte % 10.4 % (19-41); Mean Corp Hgb Conc 32.4 g/dL (32-36); Mean Corpuscular Hgb 28.1 pg (27.0-32.0); Mean Corpuscular Volume 86.6 fL (80-94); Mean Platelet Vol. 11.4 fl (6.2-12.0); Monocyte# 0.41 X10^3/uL; Monocyte% 5.1 % (0-10); NRBC Flagged by Analyzer 0 % (0-5); Neutrophil # 6.59 X10^3/uL (2.7-7.7); Neutrophil % 82.6 % (47-70); Platelet Count 220 K/mm3 (150-450); RBC Distribution Width CV 14.1 % (11.6-14.6); RBC Distribution Width SD 45.1 fl (35.1-43.9); Red Blood Count 4.77 M/mm3 (4.6-6.2)
[2023-11-07 05:09] LABS: ALB/GLOB Ratio 1.1 RATIO (0.9-2.4); AST(SGOT) 25 U/L (15-37); Alanine Aminotransfer ALT/SGPT 22 U/L (16-61); Albumin, Serum 3.8 g/dL (3.2-5.0); Alkaline Phosphatase 66 U/L (45-117); Anion Gap 9 (5-15); BUN 15 mg/dL (7-18); BUN/Creat Ratio 15.1 RATIO (10-20); Calcium,Total 9.9 mg/dL (8.5-10.1); Chloride 106 mmol/L (98-107); Cholesterol 187 mg/dL (200); Creatinine, Serum 0.99 mg/dL (0.70-1.30); EST Glomerular Filtration Rate 80 mL/min (>60); Est Glom Filt Rate - Afr Amer 97 mL/min (>60); Estimated Creatinine Clearance 81.65 ml/min; Globulin 3.4 g/dL (2.2-4.2); Glucose 152 mg/dL (74-106); High Density Lipoprotein 37 mg/dL; Potassium 4.2 mmol/L (3.5-5.1); Protein, Total 7.2 g/dL (6.4-8.2); Sodium Level 139 mmol/L (136-145); Triglycerides 185 mg/dL; Very Low Density Lipoprotein 37 mg/dL (5-40)
[2023-11-07 06:47] LABS: Troponin-I HS 3115 pg/mL (3.0-78.0)
--- NOTE | 2023-11-07 07:20 | PN.HOSP_ITS ---
Reason for Visit Reason for Visit: Diagnoses Non-ST elevation (NSTEMI) myocardial infarction (11/07/23) Objective Data Objective Data Vital Signs: Vital Signs Temp Pulse Resp BP Pulse Ox O2 Del Method 97.1 F L 88 15 173/101 H 97 Room Air 11/07/23 04:04 11/07/23 04:04 11/07/23 04:04 11/07/23 04:04 11/07/23 04:04 11/07/23 04:04 Oxygen Delivery Method Room Air Weight: 115.4 kg Body Mass Index (BMI) 34.4 Intake & Output: Intake and Output for Last 24 Hours 11/05/23 11/06/23 11/07/23 23:59 23:59 23:59 Intake Total Balance Lab / Micro Data 11/07/23 04:02 11/07/23 04:02 Labs: Laboratory Results - last 24 hr 11/07/23 00:30: WBC 7.6, RBC 4.89, Hgb 13.7, Hct 41.9, MCV 85.7, MCH 28.0, MCHC 32.7, RDW Std Deviation 44.3 H, RDW Coeff of Oscar 14.1, Plt Count 206, MPV 10.6, Immature Gran % (Auto) 0.800, Neut % (Auto) 75.0 H, Lymph % (Auto) 14.3 L, Spencer % (Auto) 6.9, Eos % (Auto) 2.6, Baso % (Auto) 0.4, Absolute Neuts (auto) 5.7, Absolute Lymphs (auto) 1.08, Nucleated RBC % 0, Sodium 136, Potassium 3.6, Chloride 105, Carbon Dioxide 25.0, Anion Gap 6, BUN 16, Creatinine 1.01, Estim Creat Clear Calc 80.03, Est GFR (MDRD) Af Amer 95, Est GFR (MDRD) Non-Af 79, BUN/Creatinine Ratio 15.8, Glucose 184 H, Calcium 9.7, Troponin I High Sens 91 H 11/07/23 02:30: Troponin I High Sens 293 H* 11/07/23 02:45: Magnesium 1.9 11/07/23 04:02: WBC 8.0, RBC 4.77, Hgb 13.4, Hct 41.3, MCV 86.6, MCH 28.1, MCHC 32.4, RDW Std Deviation 45.1 H, RDW Coeff of Oscar 14.1, Plt Count 220, MPV 11.4, Immature Gran % (Auto) 0.500, Neut % (Auto) 82.6 H, Lymph % (Auto) 10.4 L, Spencer % (Auto) 5.1, Eos % (Auto) 0.9, Baso % (Auto) 0.5, Absolute Neuts (auto) 6.6, Absolute Lymphs (auto) 0.83, Nucleated RBC % 0, Sodium 139, Potassium 4.2, Chloride 106, Carbon Dioxide 24.0, Anion Gap 9, BUN 15, Creatinine 0.99, Estim Creat Clear Calc 81.65, Est GFR (MDRD) Af Amer 97, Est GFR (MDRD) Non-Af 80, BUN/Creatinine Ratio 15.1, Glucose 152 H, Calcium 9.9, Total Bilirubin 0.30, AST 25, ALT 22, Alkaline Phosphatase 66, Total Protein 7.2, Albumin 3.8, Globulin 3.4, Albumin/Globulin Ratio 1.1, Triglycerides 185, Cholesterol 187, LDL Cholesterol 113, VLDL Cholesterol 37, HDL Cholesterol 37 L 11/07/23 06:10: Troponin I High Sens 3115 H* Radiography Diagnostic Testing: Radiology Impression Chest X-Ray 11/07/23 00:29 IMPRESSION: No demonstrated acute cardiopulmonary process. Electronically Signed: Mari Ayala MD at 1:21 EST Reading Location ID and State: [address] [place] [address] Tel , Service support , Rhythm Strip Rhythm Strip: Sinus Rhythm Rate: 70 Ectopy: None Physical Exam Narrative Physical Examination: General: Awake, alert, oriented x 3 and cooperative, seated upright in the ED, notes chest pain current near resolved. Skin: Normal color, normal turgor, no icterus, no cyanosis. HEENT: AT/NC, EOMI, PERRLA, MMM, no carotid bruits or JVD noted; however, thickened neck makes evaluation difficult. Lungs: CTA bilaterally, moderate effort, mild decrease BL bases, no rales, ronchi or wheezing. Heart: Regular rate and rhythm; no gallop, rub audible. Abdomen: Soft, obese, NTTP, ND, normal BS, no appreciated HSM. Extremities: No cyanosis, clubbing, or edema. Neurological: Patient awake, alert, oriented as noted, cognitive function intact; pupils equally reactive to light and accommodation, cranial nerves II- XII grossly normal, moving all 4 extremities, no focal deficits, strength mildly to moderately globally decreased secondary to acute presentation complaints Psychiatric: Affect appears fatigued, no acute evidence of depressive or anxiety feelings. Assessment & Plan Assessment/Plan (1) NSTEMI, initial episode of care: PLAN: Plan Patient is a 32-year-old gentleman who presented with chest pain and elevated troponin. An assessment of acute non-STEMI made admitted to the intensive care unit with consultation placed to cardiology 1. Acute non-STEMI ? Admitted to the intensive care unit treatment initiated per protocol with enoxaparin, aspirin beta-blockers and atorvastatin with consultation placed to cardiology 2. History of vestibular neuronitis ? Currently stable 3. Tobacco use ? Patient admitted to occasional use of cigars counseled on cessation 4. Class I obesity with BMI of 34.5 ? Weight loss advised 5. Hyperglycemia ? Patient is not a known diabetic. Hemoglobin A1c ordered 6. New newly diagnosed hypertension ? Patient blood pressure has remained markedly elevated since his admission started on beta-blockers 7. DVT prophylaxis ? Patient is on enoxaparin Time spent in the patient's overall evaluation,decision-making process, review of diagnostic data, adjustment of management, discussion with other providers, nursing nursing and ancillary staff involved in patient's care documentation, 55 Minutes Charges/Coding Visit Charges Inpatient E&M: 57208 Subs Hosp L3
[2023-11-07] MEDS: Acetaminophen 325 MG Tablet 650 MG PO (09:57)
[2023-11-07] MEDS: Metoprolol Tartrate 25 MG Tablet 12.5 MG PO (09:58)
[2023-11-07] MEDS: Aspirin 325 MG Tablet PO (09:58)
--- NOTE | 2023-11-07 10:14 | CASEMGMT ---
THONY CM: Tertiary facilities in network with pt's [employer] plan per website: [facility], [facility], [facility], [facility], [facility], , [facility], [facility]. Tayler Vela RN CM
--- NOTE | 2023-11-07 10:55 | CASEMGMT ---
THONY HUERTAS Discharge Planning Assessment: Face to Face with patient for initial transition planning/care coordination assessment.?THONY HUERTAS introduced self and role at [facility], pt voices understanding.?Pt alert, sitting up in bed with his Nely at bedside. Pt agreeable to participating in assessment with present. Care providers, pharmacy,?and demographics verified. ? Admitting dx: NSTEMI LACRamón strata: 1 PCP: Carlito Specialists: Ellen (ortho) Preferred Pharmacy: [facility] Insurance: [employer] Prescription Benefit:yes LNOK: Nely Living Arrangements: Pt lives with his in a single story home with a ramp entrance. Pt states he is independent with ADLs and IADLs. Transportation: Pt drives and his daughter is able to provide transportation if needed. DME/HHC/SNF: none ? Pt's goal/plan: Pt states he plans to return home with the support of his and denies any discharge needs at this time. Plan: Home. Will continue to monitor for anticoagulation need. Tayler Vela RN CM
--- NOTE | 2023-11-07 11:42 | CON.PCM.CA_ITS ---
<Statement entered by Pedro Tillman MD - 11/07/23 17:34> Pt seen & evaluated w/TERRELL. I personally interviewed & exam the pt. I was involved in all aspects of pt's orders, interpretation of results & treatment Assessment & Plan Assessment/Plan (1) NSTEMI, initial episode of care: (2) Hypertension: (3) HLD (hyperlipidemia): PLAN: Plan * With elevated troponins pt will undergo a heart cath today. Pt is agreeable with this. * Will maximize his medications. Will continue with is metoprolol, ASA, Atorvastatin. Will add Lisinopril. Will add an antiplatelet * BP is elevated, will monitor and adjust medications. * Lipids not ideal, will continue with atorvastatin. HPI Consult Data Date of Consult: 11/07/23 HPI Narrative HPI Narrative: DANNY VILLA, is a 63 M who presents to [facility] ER on 11/06/2023 with CP. Pt notes that symptoms started approx 5 pm yesterday during a . During the evening they progressively worsened. It was substernal and radiated t/o his chest. CP resolved with NTG. EKG demonstrated Sinus Rhythm, No Acute Injury Pattern, S-T Elevation (V1 1mm) and S-T Depression (1mm I, aVL), He was admitted. Troponins trended 91/293/3115. Echocardiogram demonstrated an EF of 45-50%. [place] is akinetic. As of this morning he describes his CP as a 2/10. He can not recall any symptoms prior to this that would be concerning for CAD. He has not been to his PCP in greater than 1 year. He is not currently on any home medications. He does not have a cardiac history. [facility] Medical History (Updated 11/07/23 @ 12:02 by Jossy PAYNE, PA) Cigar smoker HLD (hyperlipidemia) Hypertension Kidney stone Obesity Vestibular neuritis Home Medications multivitamin 1 ea PO DAILY 10/13/18 [History Last Taken 11/06/23] ascorbic acid (vitamin C) 500 mg tablet (C-500) 500 mg PO DAILY 11/07/23 [History Last Taken 11/06/23] cholecalciferol (vitamin D3) 125 mcg (5,000 unit) capsule 125 mcg PO DAILY 11/07/23 [History Last Taken 11/06/23] coenzyme Q10 30 mg capsule (Co Q-10) 30 mg PO DAILY 11/07/23 [History Last Taken 11/06/23] Allergy/AdvReac Type Severity Reaction Status Date / Time No Known Allergies Allergy Verified 11/07/23 00:25 Family History Mother Hypertension Anemia Father Hypertension Non Hodgkin's lymphoma Brother Sarcoidosis Other CVA (cerebral vascular accident) Diabetes Kidney stones Surgical History (Updated 11/07/23 @ 03:[address] Marlys Hernadez MD) H/O lithotripsy History of ankle surgery Social History (Updated 11/07/23 @ 03:[address] Marlys Hernadez MD) household members: spouse Smoking Status: Current some day smoker tobacco type: cigars second hand exposure: No alcohol intake: current alcohol intake frequency: holidays/special occasions only substance use type: does not use ROS ROS Narrative CONSTITUTIONAL: No weight loss, fever, chills, + weakness or fatigue. HEENT: Eyes: No visual loss, blurred vision, double vision Ears, Nose, Throat: No hearing loss, sneezing, congestion, runny nose or sore throat. CARDIOVASCULAR: + Chest pain. No palpitations, edema, orthopnea, syncopal events. RESPIRATORY: No shortness of breath, cough or sputum, wheezing, hemoptysis. GASTROINTESTINAL: No anorexia, nausea, vomiting or diarrhea, abdominal pain, melena NEUROLOGICAL: No headache, dizziness, syncope, paralysis, ataxia, numbness or tingling in the extremities, focal weakness, change in bowel or bladder control, seizure. MUSCULOSKELETAL: No muscle, back pain, joint pain or stiffness. HEMATOLOGIC: No anemia, bleeding or bruising. ENDOCRINOLOGIC: + reports of sweating. No cold or heat intolerance. No polyuria or polydipsia. Physical Exam Const alert, oriented x3, no apparent distress and healthy appearing HEENT normocephalic, head/scalp atraumatic, hearing grossly normal bilaterally, external ears normal, external nose normal and moist oral mucous membranes Eyes PERRL, EOMs intact bilaterally, conjunctivae normal and no scleral icterus Neck no lymphadenopathy, supple and no JVD Cardio regular rate, regular rhythm, S1 normal heart sound, S2 normal heart sound, no murmurs, no rub, no gallops, no clicks, no JVD and peripheral pulses 2+ throughout GI normal to inspection, nondistended, normoactive bowel sounds, soft to palpation, non-tender and non-distended Extremity normal to inspection, normal capillary refill, no clubbing, cyanosis or edema and no pedal edema Neuro oriented x3, CN's II-XII intact bilaterally, moves all extremities and no focal motor deficits Psych cooperative and affect normal Risk Stratification Risk Stratification Applicable: Yes Age >/= 65: Yes >/= 3 CAD Risk Factors (HTN, HLD, DM, family hx of CAD, or current smoker): Yes Aspirin Use in the Past 7 Days: No Severe Angina (>/= episodes in 24 hours): Yes EKG ST Changes >/= 0.5mm: No Positive Cardiac Marker: Yes TORIBIO Risk Stratification Score: 4 TORIBIO % Risk: 20% Risk Charges/Coding Visit Charges Office Visits / Consults: 53642 IP Consult L4 Objective Data Vital Signs: Vital Signs Temp Pulse Resp BP Pulse Ox O2 Del Method 97.5 F L 85 18 142/93 H 96 Room Air 11/07/23 09:46 11/07/23 09:58 11/07/23 09:46 11/07/23 09:58 11/07/23 09:46 11/07/23 09:46 Oxygen Delivery Method Room Air Weight: 254 lb 6.615 oz Body Mass Index (BMI) 34.4 Intake & Output: Intake and Output for Last 24 Hours 11/05/23 11/06/23 11/07/23 23:59 23:59 23:59 Intake Total 30 / 30 Balance 30 / 30 Lab / Micro Data 11/07/23 04:02 11/07/23 04:02 Labs: Laboratory Results - last 24 hr 11/07/23 00:30: WBC 7.6, RBC 4.89, Hgb 13.7, Hct 41.9, MCV 85.7, MCH 28.0, MCHC 32.7, RDW Std Deviation 44.3 H, RDW Coeff of Oscar 14.1, Plt Count 206, MPV 10.6, Immature Gran % (Auto) 0.800, Neut % (Auto) 75.0 H, Lymph % (Auto) 14.3 L, Zavala % (Auto) 6.9, Eos % (Auto) 2.6, Baso % (Auto) 0.4, Absolute Neuts (auto) 5.7, Absolute Lymphs (auto) 1.08, Nucleated RBC % 0, Sodium 136, Potassium 3.6, Chloride 105, Carbon Dioxide 25.0, Anion Gap 6, BUN 16, Creatinine 1.01, Estim Creat Clear Calc 80.03, Est GFR (MDRD) Af Amer 95, Est GFR (MDRD) Non-Af 79, BUN/Creatinine Ratio 15.8, Glucose 184 H, Calcium 9.7, Troponin I High Sens 91 H 11/07/23 02:30: Troponin I High Sens 293 H* 11/07/23 02:45: Magnesium 1.9 11/07/23 04:02: WBC 8.0, RBC 4.77, Hgb 13.4, Hct 41.3, MCV 86.6, MCH 28.1, MCHC 32.4, RDW Std Deviation 45.1 H, RDW Coeff of Oscar 14.1, Plt Count 220, MPV 11.4, Immature Gran % (Auto) 0.500, Neut % (Auto) 82.6 H, Lymph % (Auto) 10.4 L, Zavala % (Auto) 5.1, Eos % (Auto) 0.9, Baso % (Auto) 0.5, Absolute Neuts (auto) 6.6, Absolute Lymphs (auto) 0.83, Nucleated RBC % 0, Sodium 139, Potassium 4.2, Chloride 106, Carbon Dioxide 24.0, Anion Gap 9, BUN 15, Creatinine 0.99, Estim Creat Clear Calc 81.65, Est GFR (MDRD) Af Amer 97, Est GFR (MDRD) Non-Af 80, BUN/Creatinine Ratio 15.1, Glucose 152 H, Calcium 9.9, Total Bilirubin 0.30, AST 25, ALT 22, Alkaline Phosphatase 66, Total Protein 7.2, Albumin 3.8, Globulin 3.4, Albumin/Globulin Ratio 1.1, Triglycerides 185, Cholesterol 187, LDL Cholesterol 113, VLDL Cholesterol 37, HDL Cholesterol 37 L 11/07/23 06:10: Troponin I High Sens 3115 H* Rhythm Strip Rhythm Strip: Sinus Rhythm Rate: 70 Ectopy: None Cardiology Labs/Tests 11/07/23 00:30: WBC 7.6, RBC 4.89, Hgb 13.7, Hct 41.9, MCV 85.7, MCH 28.0, MCHC 32.7, Plt Count 206, MPV 10.6, Immature Gran % (Auto) 0.800, Neut % (Auto) 75.0 H, Lymph % (Auto) 14.3 L, Zavala % (Auto) 6.9, Eos % (Auto) 2.6, Baso % (Auto) 0.4, Absolute Neuts (auto) 5.7, Nucleated RBC % 0, Sodium 136, Potassium 3.6, Chloride 105, Carbon Dioxide 25.0, Anion Gap 6, BUN 16, Creatinine 1.01, Est GFR (MDRD) Af Amer 95, Est GFR (MDRD) Non-Af 79, BUN/Creatinine Ratio 15.8, Glucose 184 H, Calcium 9.7 11/07/23 02:45: Magnesium 1.9 11/07/23 04:02: WBC 8.0, RBC 4.77, Hgb 13.4, Hct 41.3, MCV 86.6, MCH 28.1, MCHC 32.4, Plt Count 220, MPV 11.4, Immature Gran % (Auto) 0.500, Neut % (Auto) 82.6 H, Lymph % (Auto) 10.4 L, Zavala % (Auto) 5.1, Eos % (Auto) 0.9, Baso % (Auto) 0.5, Absolute Neuts (auto) 6.6, Nucleated RBC % 0, Sodium 139, Potassium 4.2, Chloride 106, Carbon Dioxide 24.0, Anion Gap 9, BUN 15, Creatinine 0.99, Est GFR (MDRD) Af Amer 97, Est GFR (MDRD) Non-Af 80, BUN/Creatinine Ratio 15.1, Glucose 152 H, Calcium 9.9, Total Bilirubin 0.30, Triglycerides 185, Cholesterol 187, LDL Cholesterol 113, VLDL Cholesterol 37, HDL Cholesterol 37 L Radiography Diagnostic Testing: Radiology Impression Chest X-Ray 11/07/23 00:29 IMPRESSION: No demonstrated acute cardiopulmonary process. Electronically Signed: Mari Ayala MD at 1:21 EST , Echocardiogram 11/07/23 03:35 Interpretation Summary Stage 1 diastolic dysfunction. There are regional wall motion abnormalities as specified. [place] is akinetic. The estimated ejection fraction is 45-50 %. The study was technically difficult. Contrast injection was performed. Ordering Physician: Marlys Hernadez Referring Physician: Maggie Esteban Performed By: Trina Curtis, ALYSSA, RVT
--- NOTE | 2023-11-07 13:18 | PCIREPORT_ITS ---
PCI Cardiac Cath Report PCI Report: Procedure performed; 1. Moderate sedation 2. Selective left coronary angiography 3. Selective right coronary angiography 4. Successful PCI of the culprit occluded mid LAD with predilatation followed by placement of drug-eluting stent 3 x 22 mmHg Achievement of excellent result With reduction of TORIBIO from TORIBIO 0 into LAD to TORIBIO-3 and 0% stenosis postprocedure 5 successful PTCA of D2 ostial lesion using initially 2 x 15 mm balloon followed by 2.5 x 15 mm NC balloon. With maintenance of TORIBIO-3 flow in the sidebranch which is G2 6. Placement of TR band to close the right radial artery arteriotomy site. Preprocedure diagnosis 63-year-old patient who presented here to the ED department with symptoms of retrosternal chest discomfort Has diaphoresis initially Symptoms of chest discomfort got worse and continued. And he came to the ER Where a clinical diagnosis of non-ST elevation FL was noted Changes in EKG are significant for LAD lesion. Further evaluation by echocardiogram showed apical hypokinesia. Ejection fraction in the range of 45-50%. With the severe hypokinesia of the apex and distal septal segment And the cardiac marker was high sensitive troponins were significant elevated. Patient smokes cigar Also had family history of CAD his younger brother had bypass surgery. No other significant medical history in particular no history of diabetes no hypertension no history of stroke. Also with work in the medical field/EMS Access; right radial artery with placement of 6 [place] sheath in the right radial artery A cocktail of heparin as well as nitroglycerin was given through the. Consent; Risk and benefit of procedure explained in detail patient elected to proceed informed consent obtained. Diagnostic and interventional equipment used 1. 5 [place] JL 4 2. 5 [place] JR4 6 [place] JL 4 guide 3. 6 [place] JR4 guide 4. 0.014 180 cm run-through extra floppy straight guidewire 5. 0.014 180 cm run-through extra floppy straight guidewire 6. 2.5 x 15 mm SC Euphora balloon 2.5 x 15 mm NC Euphora balloon 2.0 x 15 mm balloon 3 x 22 mm Rafat frontier drug-eluting stent Medication used in the [facility]; Brilinta 180 mg Heparin IV was given through the right radial sheath as well as 6000 units IV Additional 3000 units of heparin was given. ACT level was checked. Procedure in detail; Patient brought to the [facility] urgently Proceed with access from the right radial artery and the new proceed with a diagnostic catheter angiographic view of left and coronary system were obtained Identified the culprit lesion as occluded mid LAD The new proceed with interventional plan with a 6 [place] JL 4 guide catheter advanced sending aorta cannulated the left main Then we will proceed with 2 wires run-through wires across the lesion in the mid LAD placed in the distal portion of the LAD Also placed a run-through wire into D1 as there is an ostial lesion Following this we proceed with balloon dilatation initially we will perform balloon dilatation of the LAD and then we used 2.5 x 50 mm NC balloon and we dilated the ostium of the sidebranch which she is small to moderate in size. Then we will proceed with a drug-eluting stent Rafat frontier drug-eluting stent placed in the mid LAD and achieve an excellent result 3 x 22 up to 16 CLAUDIA. Angiographically the result was excellent with a TORIBIO-3 flow in the LAD Still there is a lesion in the sidebranch on the left alone as there is a TORIBIO-3 flow. With no evidence of dissection of the ostium of the sidebranch which is D2 Conclusion Findings; 1. Left main is normal angiographically bifurcating into LAD and left circumflex 2. LAD occluded at the midportion after the septal branch Diagonal branch D1 is a small with ostial lesion around 70%, D2 moderate in size with ostial lesion of around 80%. Left circumflex large vessel normal angiographically RCA is large dominant proximal RCA had around 30-40% stenosis Conclusion recommendations; This patient had non-ST elevation FL, apical hypokinesia EF in the range of 45?50 Clinical diagnosis of non-ST elevation FL presenting with symptoms of chest pain has significant change in the EKG In the LAD distribution Underwent cardiac catheterization and the culprit lesion identified as occluded mid LAD There was successful PCI with achievement of a TORIBIO-3 flow in the LAD and a 0% stenosis postprocedure The sidebranch still had a lesion which is around 70-80% however there is a TORIBIO-3 flow in the sidebranch D2 which is left alone TR band applied to right radial artery arteriotomy site with no complication in the [facility] Recommendations; 1. Patient to continue on dual antiplatelet therapy with Brilinta 90 mg twice daily Low-dose aspirin 81 mg daily 3. High-dose atorvastatin like 80 mg Increase the dose of beta-weston metoprolol to 25 mg twice daily Added JAVED inhibitor due to reduced LV systolic dysfunction With ejection fraction of around 45-50% Lisinopril 10 mg once a day Patient will be scheduled for cardiac rehab program phase 1 Patient will continue to monitor and follow-up in the intensive care unit over the night. Plan will be for outpatient follow-up with [facility] cardiology team 1 to 2 weeks postdischarge. Pedro Tillman MD,FACC,[facility]
--- NOTE | 2023-11-07 14:10 | CRPHASE1 ---
Patient Communication Patient Information PHII Cardiac Rehab Discussed with Patient:: Yes Guide to Cardiac Rehab Given to Patient:: Yes Cardiac Rehab Facility Choice List Given to Patient:: Yes Communication to Cardiac Rehab Patient Services Coordinator:: Pedro Tillman Refer Phase II Cardiac Rehab:: Yes Cardiac Rehabilitation Info Program Information Cardiac Rehabilitation Program Information: Cardiac Rehab The cardiac rehab team at [facility] consists of highly skilled exercise physiologists, nurses, respiratory therapists and physicians working together with you. Our purpose is to help you have a full recovery and achieve the goals you set for yourself. Over the years many of our patients have returned to activities they assumed they would never do again! We can help restore your confidence and motivation to make lifestyle changes that can have a significant impact on your health and quality of life! We can help answer questions and concerns you may have about exercise, lifestyle, medications, diet, stress and anxiety which are common following a hospitalization. WE monitor ECG and vital signs during exercise and discuss your progress with you and report to your physician(s). Cardiac Rehab is proven to help reduce readmissions, improve functional capacity and lower recurrence of problems with your heart. Our Cardiac Rehab program is Certified by the [place] [employer]-V[employer] and Pulmonary [employer] (AACVPR) and Accredited by the [place] [employer] through our [facility]. You can contact us at . We invite you to call us with your questions or to get started in our program. If you have other questions or concerns be sure to ask your physician/provider during your follow-up visit. WE look forward to seeing you!
--- NOTE | 2023-11-07 14:11 | CRPH1.INSTRU ---
General Education Discussed with Patient CAD and cardiac anatomy and function:: Patient communicates acknowledgment Explanation of diagnoses and procedures:: Patient communicates acknowledgment Sign/Symptoms of AL:: Patient communicates acknowledgment Antiplatelet therapy: Patient communicates acknowledgment Proper use of NTG-SL: Patient communicates acknowledgment Emergency procedures and activation of EMS: Patient communicates acknowledgment Compliance of all prescribed medications: Patient communicates acknowledgment Smoking Risk Factors Patient Nicotine/Smoking Risk Factors Are:: Cigarettes Recommendations Recommendations Include:: Smoking cessation strategies/Smoking packet Response Code Nicotine/Smoking Response Code:: Patient communicates acknowledgment Dyslipidemia Risk Factors Patient Dyslipidemia Risk Factors Are:: Total Cholesterol, Triglycerides, HDL and LDL Recommendations Recommendations Include:: Lipid profile provided Response Code Dyslipidemia Response Code:: Patient communicates acknowledgment Overweight/Obesity Risk Factors Patient Overweight/Obesity Risk Factors Are:: Obesity - > or = 30 Recommendations Recommendations Include:: Weight loss of 5-10%, Reduced calorie diet and Exercise 5-7 times/week Response Code Overweight/Obesity:: Patient communicates acknowledgment Hypertension Recommendations Recommendations Include:: Maintain BP <130/85, DASH dietary guidelines, Decrease/maintain normal body weight and Moderation of ETOH Response Code Hypertension:: Patient communicates acknowledgment Diabetes Risk Factors Patient Diabetes Risk Factors Are:: No documented hx of diabetes Metabolic Syndrome Risk Factors Patient Metabolic Syndrome Risk Factors Are [3 of 5]:: Fasting blood sugar > 100 mg/dL, Waist circumference > 35 [female] or 40 [male], High triglyceride >150, Hypertension and Low HDL <40 [male] or < 50 [female] Recommendations Recommendations Include:: Reinforce compliance to risk factor modifications and Encouraged follow-up with Primary Care Physician Response Code Metabolic Syndrome Response Code:: Patient communicates acknowledgment Sedentary Risk Factors Patient Sedentary Risk Factors Are:: Lack of regular exercise Recommendations Recommendations Include:: Aerobic exercise 5-7 times/week for 20-30 minutes continuously, Benefits of regular exercise, Discussed home walking program and Monitored Outpatient Cardiac Rehab Response Code Sedentary Response Code:: Patient communicates acknowledgment Stress Risk Factors Patient Stress Risk Factors Are:: Patient denies stress as a risk factor
[2023-11-07 14:16] LABS: Hemoglobin A1c 5.9 % (3.8-5.6)
[2023-11-07] MEDS: Lisinopril 5 MG Tablet PO (14:19)
[2023-11-07] MEDS: 0.9% Normal Saline (1000mL) 1,000 ML 75 ML IV (14:20)
[2023-11-07] MEDS: Atorvastatin Calcium 80 MG Tablet PO (20:01)
[2023-11-07] MEDS: Metoprolol Tartrate 25 MG Tablet PO (20:02)
[2023-11-08 01:17] LABS: ACT Activated Clotting Time 217 sec (74-137)
[2023-11-08 03:00] VITALS: BP 131/98; PULSE 78; RESP 19; TEMP 36.2; O2SAT 96
[2023-11-08] MEDS: 0.9% Saline Lock 10 ML Syringe IV (03:41)
[2023-11-08 03:54] LABS: Absolute Lymphocyte Count 1.11 X10^3/uL (0.83-4.51); Absolute Neutrophil Count 8.4 X10^3/uL (2.0-7.7); Basophil# 0.05 X10^3/uL; Basophil% 0.5 % (0-1); Eosinophil# 0.16 X10^3/uL; Eosinophils% 1.5 % (0-5); Hematocrit 41.6 % (40-54); Hemoglobin 13.5 g/dL (13.0-16.5); Lymphocyte # 1.11 X10^3/ul (0.83-4.51); Lymphocyte % 10.6 % (19-41); Mean Corp Hgb Conc 32.5 g/dL (32-36); Mean Corpuscular Hgb 27.9 pg (27.0-32.0); Mean Platelet Vol. 10.9 fl (6.2-12.0); Monocyte# 0.72 X10^3/uL; Monocyte% 6.9 % (0-10); NRBC Flagged by Analyzer 0 % (0-5); Neutrophil # 8.36 X10^3/uL (2.7-7.7); Platelet Count 208 K/mm3 (150-450); RBC Distribution Width CV 14.4 % (11.6-14.6); RBC Distribution Width SD 45.1 fl (35.1-43.9); Red Blood Count 4.84 M/mm3 (4.6-6.2); White Blood Count 10.5 K/mm3 (4.4-11.0)
[2023-11-08 04:11] VITALS: BMI 34.4
[2023-11-08 04:12] LABS: ALB/GLOB Ratio 1.1 RATIO (0.9-2.4); AST(SGOT) 178 U/L (15-37); Alanine Aminotransfer ALT/SGPT 38 U/L (16-61); Albumin, Serum 3.7 g/dL (3.2-5.0); Alkaline Phosphatase 71 U/L (45-117); Anion Gap 8 (5-15); BUN 13 mg/dL (7-18); BUN/Creat Ratio 13.5 RATIO (10-20); Calcium,Total 8.6 mg/dL (8.5-10.1); Chloride 104 mmol/L (98-107); Creatinine, Serum 0.96 mg/dL (0.70-1.30); EST Glomerular Filtration Rate 83 mL/min (>60); Est Glom Filt Rate - Afr Amer 101 mL/min (>60); Globulin 3.5 g/dL (2.2-4.2); Glucose 139 mg/dL (74-106); Magnesium 1.7 mg/dL (1.6-2.6); Potassium 4.2 mmol/L (3.5-5.1); Protein, Total 7.2 g/dL (6.4-8.2); Sodium Level 138 mmol/L (136-145)
--- NOTE | 2023-11-08 07:17 | PN.HOSP_ITS ---
Reason for Visit Reason for Visit: Diagnoses Hyperlipidemia, unspecified (11/07/23) Essential (primary) hypertension (11/07/23) Non-ST elevation (NSTEMI) myocardial infarction (11/07/23) Subjective Subjective Patient underwent left heart catheterization on 11/07/2023 findings as below Left main is normal angiographically bifurcating into LAD and left circumflex. LAD occluded at the midportion after the septal branch Diagonal branch D1 is a small with ostial lesion around 70%, D2 moderate in size with ostial lesion of around 80%. Left circumflex large vessel normal angiographically RCA is large dominant proximal RCA had around 30-40% stenosis. Underwent cardiac catheterization and the culprit lesion identified as occluded mid LAD. There was successful PCI with achievement of a TORIBIO-3 flow in the LAD and a 0% stenosis postprocedure Objective Data Objective Data Vital Signs: Vital Signs Temp Pulse Resp BP Pulse Ox O2 Del Method 97.1 F L 78 19 H 131/98 H 96 Room Air 11/08/23 03:00 11/08/23 03:00 11/08/23 03:00 11/08/23 03:00 11/08/23 03:00 11/08/23 03:00 Oxygen Delivery Method Room Air Weight: 115.4 kg Body Mass Index (BMI) 34.4 Intake & Output: Intake and Output for Last 24 Hours 11/06/23 11/07/23 11/08/23 23:59 23:59 23:59 Intake Total 1030 / 1030 1000 / 1000 Output Total 1200 / 1200 Balance 1030 / -170 -200 / -200 Lab / Micro Data 11/08/23 03:40 11/08/23 03:40 Labs: Laboratory Results - last 24 hr 11/07/23 04:02: Hemoglobin A1c 5.9 H 11/07/23 12:24: Activated Clotting Time 217 H 11/08/23 03:40: WBC 10.5, RBC 4.84, Hgb 13.5, Hct 41.6, MCV 86.0, MCH 27.9, MCHC 32.5, RDW Std Deviation 45.1 H, RDW Coeff of [place] 14.4, Plt Count 208, MPV 10.9, Immature Gran % (Auto) 0.500, Neut % (Auto) 80.0 H, Lymph % (Auto) 10.6 L, [place] % (Auto) 6.9, Eos % (Auto) 1.5, Baso % (Auto) 0.5, Absolute Neuts (auto) 8.4 H, Absolute Lymphs (auto) 1.11, Nucleated RBC % 0, Sodium 138, Potassium 4.2, Chloride 104, Carbon Dioxide 26.0, Anion Gap 8, BUN 13, Creatinine 0.96, Estim Creat Clear Calc 84.20, Est GFR (MDRD) Af Amer 101, Est GFR (MDRD) Non-Af 83, BUN/Creatinine Ratio 13.5, Glucose 139 H, Calcium 8.6, Phosphorus 3.0, Magnesium 1.7, Total Bilirubin 0.60, AST 178 H, ALT 38, Alkaline Phosphatase 71, Total Protein 7.2, Albumin 3.7, Globulin 3.5, Albumin/Globulin Ratio 1.1 Radiography Diagnostic Testing: Radiology Impression Echocardiogram 11/07/23 03:35 Interpretation Summary Stage 1 diastolic dysfunction. There are regional wall motion abnormalities as specified. [place] is akinetic. The estimated ejection fraction is 45-50 %. The study was technically difficult. Contrast injection was performed. Ordering Physician: Marlys Hernadez Referring Physician: Maggie Esteban Performed By: Trina Curtis, ALYSSA, RVT Rhythm Strip Rhythm Strip: Sinus Rhythm Rate: 70 Ectopy: None Physical Exam Narrative GENERAL: cooperative HEENT: Atraumatic; normocephalic EYES; Anicteric, Normal Conjunctiva NECK; supple, normal thyroid, RESPIRATORY: Diminished to auscultation CARDIOVASCULAR: Regular S1 S2, GI: soft, normoactive bowel sounds, : No Renal angle tenderness; EXTREMITIES: No edema, no clubbing, MUSCULOSKELETAL: no muscle wasting NEURO: Awake; no lateralizing signs. SKIN: No Rash PSYCH; Flat affect Assessment & Plan Assessment/Plan (1) NSTEMI, initial episode of care: PLAN: Plan Patient is a 32-year-old gentleman who presented with chest pain and elevated troponin. An assessment of acute non-STEMI made admitted to the intensive care unit with consultation placed to cardiology 1. Acute non-STEMI ? Admitted to the intensive care unit treatment initiated per protocol with enoxaparin, aspirin beta-blockers and atorvastatin with consultation placed to cardiology Patient underwent left heart catheterization on 11/07/2023 findings as below Left main is normal angiographically bifurcating into LAD and left circumflex. LAD occluded at the midportion after the septal branch Diagonal branch D1 is a small with ostial lesion around 70%, D2 moderate in size with ostial lesion of around 80%. Left circumflex large vessel normal angiographically RCA is large dominant proximal RCA had around 30-40% stenosis. Underwent cardiac catheterization and the culprit lesion identified as occluded mid LAD. There was successful PCI with achievement of a TORIBIO-3 flow in the LAD and a 0% stenosis postprocedure 2. History of vestibular neuronitis ? Currently stable 3. Tobacco use ? Patient admitted to occasional use of cigars counseled on cessation 4. Class I obesity with BMI of 34.5 ? Weight loss advised 5. Hyperglycemia ? Patient is not a known diabetic. Hemoglobin A1c ordered 6. New newly diagnosed hypertension ? Patient blood pressure has remained markedly elevated since his admission started on beta-blockers 7. DVT prophylaxis ? Patient is on enoxaparin Time spent in the patient's overall evaluation,decision-making process, review of diagnostic data, adjustment of management, discussion with other providers, nursing nursing and ancillary staff involved in patient's care documentation, 45 Minutes Charges/Coding Visit Charges Inpatient E&M: 40800 Subs Hosp L2
[2023-11-08 07:49] VITALS: BP 125/88; PULSE 81; RESP 18; TEMP 36.3; O2SAT 95
[2023-11-08 07:52] VITALS: PULSE 82
[2023-11-08] MEDS: Lisinopril 5 MG Tablet PO (07:52)
[2023-11-08] MEDS: Aspirin E.C. 81 MG Tablet PO (07:52)
[2023-11-08] MEDS: Metoprolol Tartrate 25 MG Tablet PO (07:52)
[2023-11-08] MEDS: Famotidine 20 MG Tablet PO (07:52)
[2023-11-08] MEDS: Enoxaparin 120 MG/0.8 ML Syringe SC (07:58)
--- NOTE | 2023-11-08 09:10 | DS.PCM_ITS ---
Providers Date of Admission: 11/07/23 Date of Discharge: 11/08/23 Primary Care Physician: JOE Muir Consultations 11/07/23 03:35 Consult: Cardiology Routine Consulting Provider: Jessica Monet Reason for Consult: Chest Pain/ACS/Elevated trop EMERGENT Consult: No MD Notified: Yes Date Notified: 11/07/23 Time Notified: 02:57 Method of Notification: Text Reason For Visit: CHEST PAIN/ACS Diagnosis Discharge Diagnosis (1) NSTEMI, initial episode of care: Status: Acute Code(s): I21.4 - Non-ST elevation (NSTEMI) myocardial infarction Plan Patient is a 32-year-old gentleman who presented with chest pain and elevated troponin. An assessment of acute non-STEMI made admitted to the intensive care unit with consultation placed to cardiology 1. Acute non-STEMI ? Admitted to the intensive care unit treatment initiated per protocol with enoxaparin, aspirin beta-blockers and atorvastatin with consultation placed to cardiology Patient underwent left heart catheterization on 11/07/2023 findings as below Left main is normal angiographically bifurcating into LAD and left circumflex. LAD occluded at the midportion after the septal branch Diagonal branch D1 is a small with ostial lesion around 70%, D2 moderate in size with ostial lesion of around 80%. Left circumflex large vessel normal angiographically RCA is large dominant proximal RCA had around 30-40% stenosis. Underwent cardiac catheterization and the culprit lesion identified as occluded mid LAD. There was successful PCI with achievement of a TORIBIO-3 flow in the LAD and a 0% stenosis postprocedure 2. History of vestibular neuronitis ? Currently stable 3. Tobacco use ? Patient admitted to occasional use of cigars counseled on cessation 4. Class I obesity with BMI of 34.5 ? Weight loss advised 5. Hyperglycemia ? Patient is not a known diabetic. Hemoglobin A1c ordered 6. New newly diagnosed hypertension ? Patient blood pressure has remained markedly elevated since his admission started on beta-blockers 7. DVT prophylaxis ? Patient is on enoxaparin Time spent in the patient's overall evaluation,decision-making process, review of diagnostic data, adjustment of management, discussion with other providers, nursing nursing and ancillary staff involved in patient's care documentation, 45 Minutes Medications at Discharge Home Medications multivitamin 1 ea PO DAILY 10/13/18 ascorbic acid (vitamin C) 500 mg tablet (C-500) 500 mg PO DAILY 11/07/23 cholecalciferol (vitamin D3) 125 mcg (5,000 unit) capsule 125 mcg PO DAILY 11/07/23 coenzyme Q10 30 mg capsule (Co Q-10) 30 mg PO DAILY 11/07/23 aspirin 81 mg tablet,delayed release 81 mg PO BREAKFAST #90 tabs 11/08/23 atorvastatin 80 mg tablet 80 mg PO QHS #90 tabs 11/08/23 lisinopril 5 mg tablet 5 mg PO DAILY #90 tabs 11/08/23 metoprolol tartrate 25 mg tablet 25 mg PO BID #180 tabs 11/08/23 ticagrelor 90 mg tablet (Brilinta) 90 mg PO BID 90 days #180 tabs 11/08/23 Hospital Course Procedures 2-D Echocardiogram and Cardiac catheterization Summary of Care Provided Minutes Spent on Discharge: 45 Physical Exam Narrative GENERAL: cooperative HEENT: Atraumatic; normocephalic EYES; Anicteric, Normal Conjunctiva NECK; supple, normal thyroid, RESPIRATORY: Diminished to auscultation CARDIOVASCULAR: Regular S1 S2, GI: soft, normoactive bowel sounds, : No Renal angle tenderness; EXTREMITIES: No edema, no clubbing, MUSCULOSKELETAL: no muscle wasting NEURO: Awake; no lateralizing signs. SKIN: No Rash PSYCH; Flat affect Weight / BMI Weight Weight: 115.4 kg Body Mass Index (BMI) 34.4 ABG / Lab / Microbiology Data 11/08/23 03:40 11/08/23 03:40 Laboratory: Laboratory Results - last 24 hr 11/07/23 04:02: Hemoglobin A1c 5.9 H 11/07/23 12:24: Activated Clotting Time 217 H 11/08/23 03:40: WBC 10.5, RBC 4.84, Hgb 13.5, Hct 41.6, MCV 86.0, MCH 27.9, MCHC 32.5, RDW Std Deviation 45.1 H, RDW Coeff of Oscar 14.4, Plt Count 208, MPV 10.9, Immature Gran % (Auto) 0.500, Neut % (Auto) 80.0 H, Lymph % (Auto) 10.6 L, [place] % (Auto) 6.9, Eos % (Auto) 1.5, Baso % (Auto) 0.5, Absolute Neuts (auto) 8.4 H, Absolute Lymphs (auto) 1.11, Nucleated RBC % 0, Sodium 138, Potassium 4.2, Chl oride 104, Carbon Dioxide 26.0, Anion Gap 8, BUN 13, Creatinine 0.96, Estim Creat Clear Calc 84.20, Est GFR (MDRD) Af Amer 101, Est GFR (MDRD) Non-Af 83, BUN/Creatinine Ratio 13.5, Glucose 139 H, Calcium 8.6, Phosphorus 3.0, Magnesium 1.7, Total Bilirubin 0.60, AST 178 H, ALT 38, Alkaline Phosphatase 71, Total Protein 7.2, Albumin 3.7, Globulin 3.5, Albumin/Globulin Ratio 1.1 Radiography Diagnostic Testing: Radiology Impression Echocardiogram 11/07/23 03:35 Interpretation Summary Stage 1 diastolic dysfunction. There are regional wall motion abnormalities as specified. [place] is akinetic. The estimated ejection fraction is 45-50 %. The study was technically difficult. Contrast injection was performed. Ordering Physician: Marlys Hernadez Referring Physician: Maggie Esteban Performed By: Trina Curtis RDCS, RVT D/C Instructions Discharge Diet: Low fat / Low cholesterol Discharge Activity: Return to Normal Activity Call your doctor if you observe: Fever of 101 or Higher, Shortness of breath, Fainting spells and Chest pain Meaningful Use Info Meaningful Use Diagnoses (Choose all that apply): AMI AMI/Post PCI/Angioplasty Aspirin given w/in 24hrs of arrival?: Yes ASA at discharge?: Yes Antiplatelet Therapy at Discharge:: Yes Statins at discharge?: Yes Galo/ARB at discharge?: Yes Beta Real at discharge?: Yes Done w/ Acute OK measure.: Yes Documented LVEF (%): 45 Discharge Plan Admission Admit Date/Time: 11/07/23 02:56 Attending Provider: Benjamín Grissom Primary Care Provider: Esteban,Maggie [employer] Consulting Providers: Jessica Monet; Marlys Hernadez Discharge Orders/Prescriptions Prescriptions: New atorvastatin 80 mg Tablet 80 mg PO QHS Qty: 90 0RF aspirin 81 mg Tablet,Delayed Release (Dr/Ec) 81 mg PO BREAKFAST Qty: 90 0RF lisinopril 5 mg Tablet 5 mg PO DAILY Qty: 90 0RF metoprolol tartrate 25 mg Tablet 25 mg PO BID Qty: 180 0RF Brilinta 90 mg Tablet 90 mg PO BID 90 Days Qty: 180 0RF Continued multivitamin 1 EACH tablet 1 ea PO DAILY cholecalciferol (vitamin D3) 125 mcg (5,000 unit) capsule 125 mcg PO DAILY ascorbic acid (vitamin C) [C-500] 500 mg tablet 500 mg PO DAILY coenzyme Q10 [Co Q-10] 30 mg capsule 30 mg PO DAILY Referrals / Follow Up: Jay Snyder MD [Med Staff - Active Staff] - Within 2 Weeks Maggie Esteban NP, [employer] [Primary Care Provider] - Within 2 Weeks Disposition Disposition (needs filled in before D/C Order can be placed): Home, Self Care Charges/Coding Visit Charges Inpatient E&M: 17395 Disch Hosp >30min
--- NOTE | 2023-11-08 10:00 | EKG12_ITS ---
Test Reason : AM EKG Blood Pressure : / mmHG Vent. Rate : 081 BPM Atrial Rate : 081 BPM P-R Int : 158 ms QRS Dur : 080 ms QT Int : 410 ms P-R-T Axes : 040 -30 014 degrees QTc Int : 476 ms Normal sinus rhythm Left axis deviation Low voltage QRS Inferior infarct , age undetermined Cannot rule out Anterior infarct , age undetermined T wave abnormality, consider lateral ischemia Abnormal ECG When compared with ECG of 07-NOV-2023 02:42, Significant changes have occurred Confirmed by YOMAIRA ROMAN, GORGE ([id number]), international editorial producer KHARI L[address] ([id number]) on 11/09/2023 6:00:57 AM Referred By: Joshua Palmer Confirmed By:GORGE BURNETTE MD
--- NOTE | 2023-11-08 11:31 | CASEMGMT ---
RN CM Follow-up: This RN CM met with pt and . Pt sitting up in chair, alert, and states he is being discharged on this date. Pt denies any discharge needs or concerns at this time. Noted pt being discharged on Brilinta. Savings card provided and reviewed with pt. Noted pt's prescriptions e-prescribed to [facility] with delivery to room being coordinated by pt's RN. DC Plan: Home with support of , [employer] savings card. Tayler Vela RN AC
== END 2023-11-08 11:40 | disposition home or self-care (01) | DRG 322 ==
LOC: ED 02:58 → ICU 03:19
PROVIDERS: Admitting Provider Family Medicine; Emergency Provider Emergency Medicine; PCP Nurse Practitioner; Referring Provider Emergency Medicine; Visit Provider Internal Medicine
DX: I21.4 Non-ST elevation (NSTEMI) myocardial infarction (principal); E66.9 Obesity, unspecified; I10 Essential (primary) hypertension; E78.5 Hyperlipidemia, unspecified; G47.33 Obstructive sleep apnea (adult) (pediatric); F17.290 Nicotine dependence, other tobacco product, uncomplicated; R73.9 Hyperglycemia, unspecified; Z68.34 Body mass index [BMI] 34.0-34.9, adult; Z95.5 Presence of coronary angioplasty implant and graft; Z79.82 Long term (current) use of aspirin; Z82.3 Family history of stroke
CPT/HCPCS: 71045; 80048; 80053; 80061; 83036; 83735; 84100; 84484; 85025; 85347; 92921; 92928; 93005; 93306; 93454; 94668; 99152; 99153; 99285; J7030; Q9957; Q9967; A4216; C1725; C1769; C1874; C1887; C1894; C8929; C9600

== ENCOUNTER → 2023-11-28 | Outpatient (CLI) | payer BC, SELFPAY ==
[2023-11-28 22:07] LABS: Absolute Lymphocyte Count 1.16 X10^3/uL (0.83-4.51); Absolute Neutrophil Count 6.2 X10^3/uL (2.0-7.7); Basophil# 0.04 X10^3/uL; Basophil% 0.5 % (0-1); Eosinophil# 0.23 X10^3/uL; Eosinophils% 2.8 % (0-5); Hematocrit 40.4 % (40-54); Lymphocyte # 1.16 X10^3/ul (0.83-4.51); Lymphocyte % 14.2 % (19-41); Mean Corp Hgb Conc 32.2 g/dL (32-36); Mean Corpuscular Hgb 28.1 pg (27.0-32.0); Mean Corpuscular Volume 87.4 fL (80-94); Monocyte# 0.48 X10^3/uL; Monocyte% 5.9 % (0-10); NRBC Flagged by Analyzer 0 % (0-5); Neutrophil # 6.24 X10^3/uL (2.7-7.7); Neutrophil % 76.2 % (47-70); Platelet Count 216 K/mm3 (150-450); RBC Distribution Width CV 14.5 % (11.6-14.6); RBC Distribution Width SD 46.3 fl (35.1-43.9); Red Blood Count 4.62 M/mm3 (4.6-6.2); White Blood Count 8.2 K/mm3 (4.4-11.0)
[2023-11-28 22:41] LABS: ALB/GLOB Ratio 1.1 RATIO (0.9-2.4); AST(SGOT) 18 U/L (15-37); Alanine Aminotransfer ALT/SGPT 27 U/L (16-61); Albumin, Serum 3.9 g/dL (3.2-5.0); Alkaline Phosphatase 87 U/L (45-117); Anion Gap 7 (5-15); BUN 22 mg/dL (7-18); BUN/Creat Ratio 16.9 RATIO (10-20); CRP, High Sensitivity Cardiac 6.52 mg/L; Calcium,Total 8.8 mg/dL (8.5-10.1); Chloride 106 mmol/L (98-107); Cholesterol 108 mg/dL (200); EST Glomerular Filtration Rate 59 mL/min (>60); Est Glom Filt Rate - Afr Amer 71 mL/min (>60); Globulin 3.5 g/dL (2.2-4.2); Glucose 103 mg/dL (74-106); High Density Lipoprotein 31 mg/dL; Potassium 4.4 mmol/L (3.5-5.1); Protein, Total 7.4 g/dL (6.4-8.2); Sodium Level 140 mmol/L (136-145); Thyroid Stim Hormone (TSH) 2.45 uIU/mL (0.358-3.74); Triglycerides 207 mg/dL; Very Low Density Lipoprotein 41 mg/dL (5-40)
[2023-11-29 07:59] LABS: Troponin-I HS 9 pg/mL (3.0-78.0)
== END | disposition home or self-care (01) ==
PROVIDERS: PCP Nurse Practitioner; Visit Provider Nurse Practitioner
DX: I25.10 Atherosclerotic heart disease of native coronary artery without angina pectoris (principal); Z95.5 Presence of coronary angioplasty implant and graft; I10 Essential (primary) hypertension; R35.0 Frequency of micturition; E78.5 Hyperlipidemia, unspecified
CPT/HCPCS: 80053; 80061; 84153; 84443; 84484; 85025; 86141; G0103

== ENCOUNTER 2024-06-30 15:35 | Emergency (ER) | payer OTHER, SELFPAY ==
[2024-06-30 15:35] VITALS: BP 170/106; PULSE 73; RESP 16; TEMP 36.8; O2SAT 98; BMI 36.6
--- NOTE | 2024-06-30 15:53 | EKG12_ITS ---
Test Reason : CP Blood Pressure : / mmHG Vent. Rate : 077 BPM Atrial Rate : 077 BPM P-R Int : 178 ms QRS Dur : 082 ms QT Int : 420 ms P-R-T Axes : 038 -27 021 degrees QTc Int : 475 ms Normal sinus rhythm Inferior infarct (cited on or before 08-NOV-2023) Cannot rule out Anteroseptal infarct (cited on or before 08-NOV-2023) Abnormal ECG Confirmed by YOMAIRA ROMAN, GORGE ([id number]), art editor MANUEL WILLIAM ([id number]) on 07/02/2024 9:42:03 AM Referred By: DAVID/MARIA FERNANDA Confirmed By:GORGE BURNETTE MD
--- NOTE | 2024-06-30 15:56 | ED.VIS.CHEST ---
HPI History of Present Illness Chief Complaint: Chest Pain Informant: patient and spouse/S.O. Narrative Narrative: 64-year-old male history of coronary artery disease presenting to the emergency room with chest pain. Patient states that around 0930/1000 hours he began to notice a burning sensation in the mid/left center of his chest. He states as the day has gone on its gotten somewhat better still present currently rating it a 2 out of 6. He tried some Tums with no relief. Nothing seems to make it better or worse such as deep breathing or movement. Patient had a NSTEMI with coronary catheterization and stent placement in October 2023. He has been following up with cardiology. Only medication change has been removal of the statin due to myalgias and inability to work out on it. Those symptoms have improved since discontinuation. He denies any black or bloody stools. He does not feel sweaty nauseous or short of breath. Denies any back pain. He notes that he did lift a heavy 70 pound box yesterday he does not feel any muscle soreness today. At the time of his NSTEMI the patient described his pain as burning across the upper portion of his bilateral chest. He states that this is similar yet different especially in terms of its position. The following is an excerpt taken from his heart catheterization notes: Cardiac Catheterization 11/07/2023 Findings; 1. Left main is normal angiographically bifurcating into LAD and left circumflex 2. LAD occluded at the midportion after the septal branch Diagonal branch D1 is a small with ostial lesion around 70%, D2 moderate in size with ostial lesion of around 80%. Left circumflex large vessel normal angiographically RCA is large dominant proximal RCA had around 30-40% stenosis Conclusion recommendations; This patient had non-ST elevation RI, apical hypokinesia EF in the range of 45?50 Clinical diagnosis of non-ST elevation RI presenting with symptoms of chest pain has significant change in the EKG In the LAD distribution Underwent cardiac catheterization and the culprit lesion identified as occluded mid LAD There was successful PCI with achievement of a TORIBIO-3 flow in the LAD and a 0% stenosis postprocedure The sidebranch still had a lesion which is around 70-80% however there is a TORIBIO-3 flow in the sidebranch D2 which is left alone. [facility] Medical History Arteriosclerosis of coronary artery (11/07/23) Hypertension Cigar smoker NSTEMI, initial episode of care (11/07/23) Obesity HLD (hyperlipidemia) Vestibular neuritis Kidney stone Home Medications ?Medication ?Instructions ?Recorded ?Last Taken ?Type ascorbic acid (vitamin C) 500 mg 500 mg PO DAILY 11/07/23 11/06/23 History tablet (C-500) cholecalciferol (vitamin D3) 125 125 mcg PO DAILY 11/07/23 11/06/23 History mcg (5,000 unit) capsule coenzyme Q10 30 mg capsule (Co 30 mg PO DAILY 11/07/23 11/06/23 History Q-10) sildenafil PO .prn 11/30/23 Unknown History zinc gluconate 100 mg tablet 100 mg PO DAILY 11/30/23 Unknown History clopidogrel 75 mg tablet 75 mg PO .COMPLEX #90 tabs 02/01/24 Unknown Rx aspirin 81 mg tablet,delayed 81 mg PO BREAKFAST #90 tabs 02/03/24 Unknown Rx release atorvastatin 80 mg tablet 80 mg PO QHS #90 tabs 02/03/24 Unknown Rx lisinopril 5 mg tablet 5 mg PO DAILY #90 tabs 02/03/24 Unknown Rx metoprolol tartrate 25 mg tablet 25 mg PO BID #180 tabs 02/03/24 Unknown Rx nitroglycerin 0.3 mg sublingual 0.3 mg sublingual Q5M PRN chest 06/30/24 Unknown Rx tablet pain #10 tabs Allergy/AdvReac Type Severity Reaction Status Date / Time No Known Allergies Allergy Verified 06/30/24 15:41 Family History Mother Hypertension Anemia Father Hypertension Non Hodgkin's lymphoma Brother Sarcoidosis Other CVA (cerebral vascular accident) Diabetes Kidney stones Surgical History Stented coronary artery (11/07/23) History of ankle surgery H/O lithotripsy Social History household members: spouse Smoking Status: Current some day smoker tobacco type: cigars second hand exposure: No alcohol intake: current alcohol intake frequency: 0-2 drinks per day Alcohol type: wine substance use type: does not use caffeine: Yes Type: coffee Number of servings: 2 ROS ROS ED Constitutional Constitutional ED: Denies chills, fever(s) or weight loss Eyes Eyes: Denies change in vision or diplopia ENT ENT ED: Denies ear pain, rhinorrhea or sore throat Cardiovascular Cardiovascular: Reports as per HPI and chest pain; Denies orthopnea, palpitations or racing heartbeat Respiratory/Chest Respiratory/Chest: Denies cough, dyspnea or orthopnea Gastrointestinal Gastrointestinal: Denies abdominal pain, diarrhea, nausea or vomiting Genitourinary Genitourinary ED: Denies dysuria, hematuria or urinary frequency Musculoskeletal Musculoskeletal: Denies arthralgias or myalgias Integumentary Denies abscess or rash Neurologic Neurologic: Denies headache(s) or weakness Psychiatric Psychiatric: Denies anxiety, depression, suicidal ideation or suicidal thoughts Endocrine Endocrinology: Denies polydipsia, polyphagia or polyuria Allergic/Immunologic Allergic/Immunologic ED: Denies mouth swelling, tongue swelling or urticaria EXAM Physical Exam Const Vital Signs: 06/30/24 15:35 06/30/24 16:35 06/30/24 17:00 Temperature 98.2 F Temperature Source Oral Pulse Rate 73 69 64 Respiratory Rate 16 16 16 Blood Pressure 170/106 H 134/94 H 141/88 H Blood Pressure Mean 127 107 105 Pulse Ox 98 96 98 Oxygen Delivery Method Room Air Room Air Room Air 06/30/24 18:00 06/30/24 18:00 06/30/24 18:25 Temperature 97.8 F 97.4 F L Temperature Source Temporal Pulse Rate 64 64 63 Respiratory Rate 16 16 16 Blood Pressure 147/87 H 147/87 H 147/87 H Blood Pressure Mean 107 107 107 Pulse Ox 97 98 98 Oxygen Delivery Method Room Air Room Air Positive well nourished and well developed General Appearance ED: well developed HEENT Reports normocephalic, head/scalp atraumatic and moist mucous membranes Eyes PERRL and EOMs intact bilaterally Neck no lymphadenopathy, supple and no JVD Resp normal respiratory effort and clear to auscultation bilaterally Cardio regular rate, regular rhythm and no murmurs GI normal to inspection, nondistended, normoactive bowel sounds and non-tender Palpation: soft Back/Spine no CVA tenderness and normal ROM Extremity normal to inspection General Extremety ED: Negative for edema General Extremity: Negative for edema Neuro oriented x3 and CN's II-XII intact bilaterally Sensorium / Orientation: alert Motor Exam: strength 5/5 throughout Psych mental status grossly normal Mood & Affect: Negative for depressed or tearful Skin no rashes or lesions noted and no wounds Heart Score History: Slightly/Non-Suspicious ECG: Normal Age: >/= 65 years Risk Factors: >/= 3 Risk Factors or History of CAD Troponin: </= Normal Limit Score: 4 MDM MDM MDM Narrative Medical decision making narrative: Differential diagnosis includes but not limited to acute coronary syndrome pulmonary embolism pneumothorax esophagitis GERD pneumonia EKG shows no acute findings. My independent interpretation of the chest x-ray is no acute findings. CBC BMP was rather unremarkable. 2 sets of cardiac enzymes are negative. D-dimer is normal. Patient got 80% improvement of symptoms with a GI cocktail. At this point I think the patient can be discharged home. His blood pressure is down to 140/87. I will write for him to have some nitroglycerin at home as he does not have any rescue nitroglycerin. I have asked that if he has return of symptoms return to emergency. Would recommend primary care/cardiology follow-up if continued symptoms. History & Record Review Discussion w/independent historian: Patient and Significant other Additional record(s) reviewed:: Prior inpatient record, Prior ED visit and Prior labs Lab Data Attestation: I reviewed the patient's lab results. Labs: Laboratory Results - last 24 hr 06/30/24 06/30/24 15:40 17:55 WBC 7.9 RBC 4.90 Hgb 13.5 Hct 42.1 MCV 85.9 MCH 27.6 MCHC 32.1 RDW Std Deviation 45.9 H RDW Coeff of Oscar 14.6 Plt Count 204 MPV 10.1 Immature Gran % (Auto) 0.600 Neut % (Auto) 68.0 Lymph % (Auto) 19.1 [place] % (Auto) 8.0 Eos % (Auto) 3.5 Baso % (Auto) 0.8 Absolute Neuts (auto) 5.4 Absolute Lymphs (auto) 1.51 Nucleated RBC % 0 D-Dimer Quant (PE/DVT) 0.31 Sodium 138 Potassium 4.1 Chloride 105 Carbon Dioxide 28.0 Anion Gap 5 BUN 21 H Creatinine 1.09 Estim Creat Clear Calc 90.08 Est GFR (MDRD) Af Amer 87 Est GFR (MDRD) Non-Af 72 BUN/Creatinine Ratio 19.3 Glucose 100 Calcium 9.8 Troponin I High Sens 5 5 Radiography Diagnostic Testing: Clinical Impression(s) from Imaging Studies Chest X-Ray 06/30/24 16:24 IMPRESSION: No acute cardiopulmonary pathology Electronically Signed: Khadar Mayen MD at 16:41 EDT Reading Location ID and State: [facility] / [place] Tel , Service support , EKG Initial EKG: Attestation: I personally reviewed and interpreted this EKG as follows: Comments: Normal sinus rhythm ventricular rate of 77 bpm. Prior EKG tracings: available for review Prior: Changed (There is improvement in the anterior leads particularly noting V3 compared to his EKG from October 2023) Management Discussion w/another healthcare provider: [facility] (Dr. Monet) Discharge Plan Triage Chief Complaint: Chest Pain ED Provider: Jose Ramon Way Dx/Rx/DC Orders Clinical Impression: Chest pain, Hypertension Instructions: ED Chest Pain, Uncertain Cause Prescriptions: New nitroglycerin 0.3 mg tablet, sublingual 0.3 mg sublingual Q5M PRN (Reason: chest pain) Qty: 10 0RF Rx Instructions: do not exceed 3 doses per episode No Action zinc gluconate 100 mg tablet 100 mg PO DAILY sildenafil 80 mg PO .prn cholecalciferol (vitamin D3) 125 mcg (5,000 unit) capsule 125 mcg PO DAILY ascorbic acid (vitamin C) [C-500] 500 mg tablet 500 mg PO DAILY coenzyme Q10 [Co Q-10] 30 mg capsule 30 mg PO DAILY clopidogrel 75 mg tablet 75 mg PO .COMPLEX Qty: 90 3RF Rx Instructions: 1 tablet by mouth daily; aspirin 81 mg tablet,delayed release (DR/EC) 81 mg PO BREAKFAST Qty: 90 3RF atorvastatin 80 mg tablet 80 mg PO QHS Qty: 90 3RF lisinopril 5 mg tablet 5 mg PO DAILY Qty: 90 3RF metoprolol tartrate 25 mg tablet 25 mg PO BID Qty: 180 3RF Primary Care Provider: Maggie Esteban NP Referrals: Wilfrid Weber MD [Med Staff - Active Staff] - 1 Week if not improving Esteban,Maggie SKEIN DRIER, SKEIN DRIER-C [Primary Care Provider] - As Needed Print Language: Kyrgyz Disposition Disposition: Home, Self Care Discharge Date/Time: 06/30/24 18:33
[2024-06-30] MEDS: Mag /Aluminum/Simeth WCH UDC 30 ML ORAL.SUSP PO (15:58)
[2024-06-30] MEDS: Lidocaine 2% Viscous15 ML UDC 15 ML PO (15:58)
[2024-06-30 16:08] LABS: Absolute Lymphocyte Count 1.51 X10^3/uL (0.83-4.51); Absolute Neutrophil Count 5.4 X10^3/uL (2.0-7.7); Basophil# 0.06 X10^3/uL; Basophil% 0.8 % (0-1); Eosinophil# 0.28 X10^3/uL; Eosinophils% 3.5 % (0-5); Hematocrit 42.1 % (40-54); Hemoglobin 13.5 g/dL (13.0-16.5); Lymphocyte # 1.51 X10^3/ul (0.83-4.51); Lymphocyte % 19.1 % (19-41); Mean Corp Hgb Conc 32.1 g/dL (32-36); Mean Corpuscular Hgb 27.6 pg (27.0-32.0); Mean Corpuscular Volume 85.9 fL (80-94); Mean Platelet Vol. 10.1 fl (6.2-12.0); Monocyte# 0.63 X10^3/uL; NRBC Flagged by Analyzer 0 % (0-5); Neutrophil # 5.37 X10^3/uL (2.7-7.7); Platelet Count 204 K/mm3 (150-450); RBC Distribution Width CV 14.6 % (11.6-14.6); RBC Distribution Width SD 45.9 fl (35.1-43.9); White Blood Count 7.9 K/mm3 (4.4-11.0)
[2024-06-30 16:14] LABS: D-Dimer Quantitative (DVT/PE) 0.31 FEU/ug/m (0.27-0.49)
[2024-06-30 16:20] LABS: Anion Gap 5 (5-15); BUN 21 mg/dL (7-18); BUN/Creat Ratio 19.3 RATIO (10-20); Calcium,Total 9.8 mg/dL (8.5-10.1); Chloride 105 mmol/L (98-107); Creatinine, Serum 1.09 mg/dL (0.70-1.30); EST Glomerular Filtration Rate 72 mL/min (>60); Est Glom Filt Rate - Afr Amer 87 mL/min (>60); Estimated Creatinine Clearance 90.08 ml/min; Glucose 100 mg/dL (74-106); Potassium 4.1 mmol/L (3.5-5.1); Sodium Level 138 mmol/L (136-145); Troponin-I HS (w/2H Reflex) 5 pg/mL (3.0-78.0)
--- NOTE | 2024-06-30 16:24 | RAD_ITS ---
STUDY: X-RAY CHEST REASON FOR EXAM: Male, 64 years old. chest pain TECHNIQUE: AP portable COMPARISON: November 07, 2023 FINDINGS: The lungs are clear and expanded. There is no demonstrated pleural abnormality. Normal size heart. Normal mediastinum and ava. Normal visualized pulmonary arteries. Mildly tortuous aortic arch and descending thoracic aorta. Normal visualized thoracic spine. Normal visualized ribs, clavicles, and shoulders. There is no demonstrated abnormality of the visualized soft tissue structures of the upper abdomen. No significant change since prior exam RAD/Chest 1 View (Portable) IMPRESSION: No acute cardiopulmonary pathology Electronically Signed: Khadar Mayen MD at 16:41 EDT ,
[2024-06-30 16:35] VITALS: BP 134/94; PULSE 69; RESP 16; O2SAT 96
[2024-06-30 17:00] VITALS: BP 141/88; PULSE 64; RESP 16; O2SAT 98
[2024-06-30 17:59] LABS: Reflex Troponin-HS? (from REC) Y
[2024-06-30 18:00] VITALS: BP 147/87; PULSE 64; RESP 16; TEMP 36.6; O2SAT 97; O2SAT 98
[2024-06-30 18:21] LABS: Troponin-I HS 5 pg/mL (3.0-78.0)
[2024-06-30 18:25] VITALS: BP 147/87; PULSE 63; RESP 16; TEMP 36.3; O2SAT 98
== END 2024-06-30 18:33 | disposition home or self-care (01) ==
PROVIDERS: Emergency Provider Emergency Medicine; PCP Nurse Practitioner; Visit Provider Emergency Medicine
DX: R07.9 Chest pain, unspecified (principal); I25.10 Atherosclerotic heart disease of native coronary artery without angina pectoris; E78.5 Hyperlipidemia, unspecified; I10 Essential (primary) hypertension; I25.2 Old myocardial infarction; Z95.5 Presence of coronary angioplasty implant and graft; F17.290 Nicotine dependence, other tobacco product, uncomplicated
CPT/HCPCS: 71045; 80048; 84484; 85025; 85379; 93005; 99284; A4216

== ENCOUNTER → 2024-10-22 | Outpatient (CLI) | payer OTHER, SELFPAY ==
[2024-10-22 11:51] LABS: AST(SGOT) 17 U/L (15-37); Alanine Aminotransfer ALT/SGPT 26 U/L (16-61); Albumin, Serum 3.9 g/dL (3.2-5.0); Alkaline Phosphatase 69 U/L (45-117); Bilirubin, Direct 0.09 mg/dL (0.00-0.30); Cholesterol 184 mg/dL (200); Globulin 3.9 g/dL (2.2-4.2); High Density Lipoprotein 37 mg/dL; Protein, Total 7.8 g/dL (6.4-8.2); Triglycerides 424 mg/dL
== END | disposition home or self-care (01) ==
PROVIDERS: PCP Nurse Practitioner; Referring Provider Physician Assistant Medical; Visit Provider Physician Assistant Medical
DX: I25.10 Atherosclerotic heart disease of native coronary artery without angina pectoris (principal); E78.5 Hyperlipidemia, unspecified
CPT/HCPCS: 36415; 80061; 80076